=== PATIENT | male | born 1970 | race Caucasian/White ===

== ENCOUNTER 2016-05-14 23:53 | Emergency (ER) | payer SELFPAY ==
[~2016-05-14] VITALS: Ht 175.3 cm; Wt 90.0 kg
[~2016-05-14 23:53] MED LIST: ALLO100T30 PO; INDO50CA PO; OMEP10CA4 PO
[2016-05-14 23:56] VITALS: BP 115/83
[2016-05-15] MEDS ORDERED: ASPIRIN 81 MG TABLET CHEW PO ONE (00:30)
[2016-05-15 00:42] LABS: HEMOGLOBIN 15.1 g/dL (13.7-18.0)
[2016-05-15] MEDS ORDERED: ASPIRIN 81 MG TABLET CHEW ONE (00:42)
[2016-05-15 00:54] LABS: BLOOD UREA NITROGEN 16 mg/dL (7-18)
[2016-05-15 00:59] LABS: IS PT STATUS REG ER OR PRE ER? YES
[2016-05-15] MEDS ORDERED: OMNIPAQUE 350 MG/ML, 100ML BOTTLE ONE (01:05)
== END 2016-05-15 03:23 | disposition home or self-care (01) ==
LOC: ED 05-15 01:38
DX: R07.89 Other chest pain (principal); M54.30 Sciatica, unspecified side; M10.9 Gout, unspecified
CPT/HCPCS: 36415; 71010; 71275; 80048; 82040; 84484; 85025; 85379; 93005; 93971; 99285; Q9967

== ENCOUNTER 2017-01-26 22:21 | Emergency (ER) | payer SELFPAY ==
[~2017-01-26] VITALS: Ht 175.3 cm; Wt 90.0 kg
[2017-01-26 22:22] VITALS: BP 130/85
[2017-01-26] MEDS ORDERED: COLCHICINE 0.6 MG TABLET PO STA (22:45)
[2017-01-26] MEDS ORDERED: HYDROmorphone 2 MG/ML, 1ML IM STA (22:51)
[2017-01-26] MEDS ORDERED: HYDROmorphone 2 MG/ML, 1ML ONE (23:00)
[2017-01-26 23:05] LABS: HEMATOCRIT 42.1 % (39.2-51.8); HEMOGLOBIN 14.1 g/dL (13.7-18.0); WHITE BLOOD COUNT 7.6 x10^3/uL (3.4-10)
[2017-01-26 23:12] LABS: ASPARTATE AMINO TRANSFERASE 21 U/L (15-37); BLOOD UREA NITROGEN 20 mg/dL (7-18)
== END 2017-01-27 00:31 | disposition home or self-care (01) ==
LOC: ED 23:59
DX: M13.0 Polyarthritis, unspecified (principal); M10.9 Gout, unspecified; E11.65 Type 2 diabetes mellitus with hyperglycemia
CPT/HCPCS: 36415; 64450; 73660; 80053; 85025; 96372; 99285; J1170

== ENCOUNTER 2017-03-01 16:09 | Emergency (ER) | payer OTHER ==
[~2017-03-01] VITALS: Ht 175.3 cm; Wt 80.0 kg
[2017-03-01] MEDS ORDERED: SODIUM CHLORIDE 0.9% 1,000 ML IV ONE (16:50)
[2017-03-01] MEDS ORDERED: MORPHINE SULFATE 4 MG/ML, 1ML IVPush PRN (17:00)
[2017-03-01] MEDS ORDERED: SODIUM CHLORIDE FLUSH 10ML SYR IVF ONE (17:00)
[2017-03-01] MEDS ORDERED: ONDANSETRON 2MG/ML, 2ML IVPush ONE (17:00)
[2017-03-01] MEDS ORDERED: ONDANSETRON 2MG/ML, 2ML ONE (17:17)
[2017-03-01] MEDS ORDERED: MORPHINE SULFATE 4 MG/ML, 1ML ONE (17:17)
[2017-03-01] MEDS ORDERED: KETOROLAC 30 MG/1 ML IVPush ONE (17:20)
[2017-03-01] MEDS ORDERED: KETOROLAC 30 MG/1 ML ONE (17:25)
[2017-03-01 18:43] VITALS: BP 140/85
== END 2017-03-01 18:47 | disposition home or self-care (01) ==
LOC: ED 17:37
DX: N13.2 Hydronephrosis with renal and ureteral calculous obstruction (principal); M19.90 Unspecified osteoarthritis, unspecified site; M10.9 Gout, unspecified; E11.9 Type 2 diabetes mellitus without complications
CPT/HCPCS: 96374; 96375; 99284; J1885; J2405; J7030; 99285

== ENCOUNTER 2017-05-23 22:12 | Emergency (ER) | payer SELFPAY ==
[~2017-05-23] VITALS: Ht 175.3 cm; Wt 91.6 kg
[2017-05-23 23:28] LABS: BASOPHILS # (AUTO) 0.11 x10^3/uL (0-0.1); BASOPHILS % (AUTO) 1 % (0-1); EOSINOPHILS # (AUTO) 0.16 x10^3/uL (0-0.4); EOSINOPHILS % (AUTO) 2 % (1-7); LYMPHOCYTES % (AUTO) 19 % (22-44); MD NO; MEAN CORPUSCULAR HEMOGLOBIN 29.8 pg (27.5-34.5); MEAN CORPUSCULAR HGB CONC 33.6 g/dL (33.2-36.2); MEAN CORPUSCULAR VOLUME 88.8 fL (81-97); MEAN PLATELET VOLUME 8.2 fL (7.4-10.4); MONOCYTES # (AUTO) 0.89 x10^3/uL (0.2-0.8); MONOCYTES % (AUTO) 9 % (2-9); NEUTROPHILS # (AUTO) 7.21 x10^3/uL (1.8-6.8); NEUTROPHILS % (AUTO) 70 % (42-75); PLATELET COUNT 344 x10^3/uL (130-400); RED BLOOD COUNT 4.62 x10^6/uL (4.38-5.82); RED CELL DISTRIBUTION WIDTH 14.2 % (9.4-14.8)
[2017-05-23 23:40] LABS: ALBUMIN 3.6 g/dL (3.4-5.0); ANION GAP 10 mmol/L (5-15); CALCIUM 8.2 mg/dL (8.5-10.1); CHLORIDE 104 mmol/L (98-107); CREATININE 0.95 mg/dL (0.7-1.3)
[2017-05-23 23:43] LABS: TROPONIN I < 0.015 ng/mL (0.000-0.045)
[2017-05-24] MEDS ORDERED: KETOROLAC 30 MG/1 ML ONE (00:43)
[2017-05-24] MEDS ORDERED: DEXAMETHASONE 4 MG TABLET ONE (00:43)
[2017-05-24] MEDS ORDERED: DEXAMETHASONE 4 MG TABLET PO ONE (01:00)
[2017-05-24] MEDS ORDERED: KETOROLAC 30 MG/1 ML IM ONE (01:00)
[2017-05-24 01:13] VITALS: BP 125/86
== END 2017-05-24 01:15 | disposition home or self-care (01) ==
LOC: ED 23:59
DX: J02.8 Acute pharyngitis due to other specified organisms (principal); R07.89 Other chest pain
CPT/HCPCS: 36415; 71045; 80048; 82040; 83880; 84484; 85025; 87081; 87880; 93005; 96372; 99285; J1885

== ENCOUNTER 2017-07-16 14:34 | Emergency (ER) | payer SELFPAY ==
[~2017-07-16] VITALS: Ht 175.3 cm; Wt 90.0 kg
[2017-07-16 14:35] VITALS: BP 134/87
[2017-07-16] MEDS ORDERED: SODIUM CHLORIDE 0.9% 1,000 ML IV ONE (15:08)
[2017-07-16] MEDS ORDERED: ONDANSETRON ODT 4 MG ONE (15:22)
[2017-07-16] MEDS ORDERED: MORPHINE SULFATE 4 MG/ML, 1ML ONE ×2 (15:23→17:35)
[2017-07-16 15:25] LABS: BASOPHILS # (AUTO) 0.02 x10^3/uL (0-0.1); BASOPHILS % (AUTO) 0 % (0-1); EOSINOPHILS # (AUTO) 0.06 x10^3/uL (0-0.4); EOSINOPHILS % (AUTO) 1 % (1-7); LYMPHOCYTES # (AUTO) 1.42 x10^3/uL (1-3.4); LYMPHOCYTES % (AUTO) 16 % (22-44); MD NO; MEAN CORPUSCULAR HEMOGLOBIN 29.6 pg (27.5-34.5); MEAN CORPUSCULAR VOLUME 89.6 fL (81-97); MEAN PLATELET VOLUME 7.9 fL (7.4-10.4); MONOCYTES # (AUTO) 0.63 x10^3/uL (0.2-0.8); MONOCYTES % (AUTO) 7 % (2-9); NEUTROPHILS % (AUTO) 76 % (42-75); PLATELET COUNT 294 x10^3/uL (130-400); RED BLOOD COUNT 4.68 x10^6/uL (4.38-5.82); RED CELL DISTRIBUTION WIDTH 14.1 % (9.4-14.8)
[2017-07-16] MEDS ORDERED: SODIUM CHLORIDE 0.9% 1,000ML IVBOLUS ONE (15:30)
[2017-07-16] MEDS ORDERED: ONDANSETRON ODT 4 MG PO ONE (15:30)
[2017-07-16 15:37] LABS: ALBUMIN 3.4 g/dL (3.4-5.0); ANION GAP 10 mmol/L (5-15); CALCIUM 8.1 mg/dL (8.5-10.1); CHLORIDE 99 mmol/L (98-107)
[2017-07-16 15:40] LABS: ALANINE AMINOTRANSFERASE 18 U/L (12-78); ALKALINE PHOSPHATASE 125 U/L (45-117); BILIRUBIN,TOTAL 0.6 mg/dL (0.2-1.0); CREATININE 1.13 mg/dL (0.7-1.3); TOTAL PROTEIN 7.3 g/dL (6.4-8.2)
[2017-07-16] MEDS: MORPHINE SULFATE 4 MG/ML, 1ML IVPush PRN ×2 (15:50→17:40)
[2017-07-16] MEDS ORDERED: KETOROLAC 30 MG/1 ML IVPush ONE (16:30)
[2017-07-16 17:23] LABS: MICROSCOPIC NOT IND
[2017-07-16 17:25] LABS: CULTURE INDICATED? NO
[2017-07-16] MEDS ORDERED: KETOROLAC 30 MG/1 ML ONE (17:34)
== END 2017-07-16 19:20 ==
LOC: ED 18:33
DX: R10.13 Epigastric pain (principal); E11.65 Type 2 diabetes mellitus with hyperglycemia; B34.9 Viral infection, unspecified; M10.9 Gout, unspecified; M19.90 Unspecified osteoarthritis, unspecified site
CPT/HCPCS: 36415; 80053; 81003; 83690; 85025; 93005; 96361; 96374; 96375; 96376; 99285; J1885; J7030; Q0162

== ENCOUNTER 2017-07-31 22:03 | Emergency (ER) | payer SELFPAY ==
[~2017-07-31] VITALS: Ht 172.7 cm; Wt 90.9 kg
[2017-07-31 22:53] LABS: BASOPHILS # (AUTO) 0.04 x10^3/uL (0-0.1); BASOPHILS % (AUTO) 1 % (0-1); EOSINOPHILS % (AUTO) 3 % (1-7); LYMPHOCYTES # (AUTO) 2.06 x10^3/uL (1-3.4); LYMPHOCYTES % (AUTO) 29 % (22-44); MD NO; MEAN CORPUSCULAR HEMOGLOBIN 29.1 pg (27.5-34.5); MEAN CORPUSCULAR HGB CONC 33.3 g/dL (33.2-36.2); MEAN CORPUSCULAR VOLUME 87.4 fL (81-97); MONOCYTES # (AUTO) 0.49 x10^3/uL (0.2-0.8); MONOCYTES % (AUTO) 7 % (2-9); NEUTROPHILS # (AUTO) 4.23 x10^3/uL (1.8-6.8); NEUTROPHILS % (AUTO) 60 % (42-75); PLATELET COUNT 317 x10^3/uL (130-400); RED BLOOD COUNT 4.65 x10^6/uL (4.38-5.82); RED CELL DISTRIBUTION WIDTH 14.1 % (9.4-14.8)
[2017-07-31] MEDS ORDERED: KETOROLAC 30 MG/1 ML ONE (22:54)
[2017-07-31] MEDS ORDERED: KETOROLAC 30 MG/1 ML IM ONE (23:00)
[2017-07-31 23:05] LABS: ALBUMIN 3.5 g/dL (3.4-5.0); ANION GAP 8 mmol/L (5-15); CALCIUM 8.8 mg/dL (8.5-10.1); CHLORIDE 108 mmol/L (98-107); CREATININE 0.95 mg/dL (0.7-1.3)
[2017-07-31 23:50] VITALS: BP 138/87
== END 2017-07-31 23:52 | disposition home or self-care (01) ==
LOC: ED 23:38
DX: M25.562 Pain in left knee (principal); M79.675 Pain in left toe(s); M13.0 Polyarthritis, unspecified
CPT/HCPCS: 36415; 80048; 82040; 85025; 96372; 99284; J1885; J7512

== ENCOUNTER 2018-01-13 09:36 | Emergency (ER) | payer SELFPAY ==
[~2018-01-13] VITALS: Ht 175.3 cm; Wt 93.8 kg
[~2018-01-13 09:36] MED LIST changes: -INDO50CA PO; +INDO50CA5 PO
[2018-01-13 09:47] VITALS: BP 119/81
[2018-01-13] MEDS ORDERED: KETOROLAC 30 MG/1 ML ONE (10:22)
[2018-01-13] MEDS ORDERED: KETOROLAC 30 MG/1 ML IM ONE (10:30)
[2018-01-13 10:32] LABS: BASOPHILS # (AUTO) 0.03 x10^3/uL (0-0.1); BASOPHILS % (AUTO) 0 % (0-1); EOSINOPHILS # (AUTO) 0.05 x10^3/uL (0-0.4); EOSINOPHILS % (AUTO) 1 % (1-7); LYMPHOCYTES # (AUTO) 1.33 x10^3/uL (1-3.4); LYMPHOCYTES % (AUTO) 16 % (22-44); MD NO; MEAN CORPUSCULAR HEMOGLOBIN 29.9 pg (27.5-34.5); MEAN CORPUSCULAR HGB CONC 33.5 g/dL (33.2-36.2); MEAN CORPUSCULAR VOLUME 89.2 fL (81-97); MEAN PLATELET VOLUME 8.5 fL (7.4-10.4); MONOCYTES # (AUTO) 0.68 x10^3/uL (0.2-0.8); MONOCYTES % (AUTO) 8 % (2-9); NEUTROPHILS # (AUTO) 6.36 x10^3/uL (1.8-6.8); NEUTROPHILS % (AUTO) 75 % (42-75); PLATELET COUNT 245 x10^3/uL (130-400); RED BLOOD COUNT 4.77 x10^6/uL (4.38-5.82); RED CELL DISTRIBUTION WIDTH 14.5 % (9.4-14.8)
[2018-01-13] MEDS ORDERED: COLCHICINE 0.6 MG TABLET PO ONE (11:30)
[2018-01-13] MEDS ORDERED: COLCHICINE 0.6 MG TABLET ONE (11:44)
== END 2018-01-13 12:07 | disposition home or self-care (01) ==
LOC: ED 10:40
DX: M19.021 Primary osteoarthritis, right elbow (principal); M19.041 Primary osteoarthritis, right hand; E11.9 Type 2 diabetes mellitus without complications
CPT/HCPCS: 36415; 73080; 73130; 84550; 85025; 85651; 96372; 99284; J1885

== ENCOUNTER 2018-03-24 18:02 | Emergency (ER) | payer SELFPAY ==
[~2018-03-24] VITALS: Ht 175.3 cm; Wt 91.0 kg
[2018-03-24] MEDS ORDERED: HYDROcodone/APAP 5/325 TABLET ONE (18:59)
[2018-03-24] MEDS ORDERED: METHOCARBAMOL 750 MG TABLET ONE (18:59)
--- NOTE | 2018-03-24 18:59 | NUR ---
Pt in bathroom, family at bedside during bedside report. Hansa PACE medicating pt, waiting for results.
[2018-03-24] MEDS ORDERED: HYDROcodone/APAP 5/325 TABLET PO ONE (19:00)
[2018-03-24] MEDS ORDERED: METHOCARBAMOL 750 MG TABLET PO ONE (19:00)
--- NOTE | 2018-03-24 19:45 | NUR ---
PT PAIN DECREASED FROM 10/10 TO 8/[address]. CT PENDING.
--- NOTE | 2018-03-24 20:00 | NUR ---
ALL RESULTS BACK PT UP FOR RECHECK.
[2018-03-24 20:52] VITALS: BP 132/86
== END 2018-03-24 20:56 | disposition home or self-care (01) ==
LOC: ED 19:40
DX: G24.3 Spasmodic torticollis (principal); E11.9 Type 2 diabetes mellitus without complications
CPT/HCPCS: 72125; 99284

== ENCOUNTER 2018-05-02 15:06 | Emergency (ER) | payer SELFPAY ==
[~2018-05-02] VITALS: Ht 175.3 cm; Wt 92.4 kg
[2018-05-02 15:36] LABS: BASOPHILS # (AUTO) 0.04 x10^3/uL (0-0.1); BASOPHILS % (AUTO) 0 % (0-1); EOSINOPHILS # (AUTO) 0.08 x10^3/uL (0-0.4); EOSINOPHILS % (AUTO) 1 % (1-7); LYMPHOCYTES # (AUTO) 1.97 x10^3/uL (1-3.4); LYMPHOCYTES % (AUTO) 22 % (22-44); MD NO; MEAN CORPUSCULAR HEMOGLOBIN 30.1 pg (27.5-34.5); MEAN CORPUSCULAR HGB CONC 33.8 g/dL (33.2-36.2); MEAN CORPUSCULAR VOLUME 89.2 fL (81-97); MEAN PLATELET VOLUME 8.4 fL (7.4-10.4); MONOCYTES # (AUTO) 0.65 x10^3/uL (0.2-0.8); MONOCYTES % (AUTO) 7 % (2-9); NEUTROPHILS % (AUTO) 69 % (42-75); PLATELET COUNT 277 x10^3/uL (130-400); RED BLOOD COUNT 4.73 x10^6/uL (4.38-5.82); RED CELL DISTRIBUTION WIDTH 13.9 % (9.4-14.8)
[2018-05-02 15:39] LABS: ANION GAP 6 mmol/L (5-15); CALCIUM 8.5 mg/dL (8.5-10.1); CHLORIDE 108 mmol/L (98-107); CREATININE 1.07 mg/dL (0.7-1.3)
[2018-05-02 16:03] LABS: MICROSCOPIC NOT IND
[2018-05-02 16:15] LABS: CULTURE INDICATED? NO
[2018-05-02] MEDS ORDERED: HYDROmorphone 2 MG/ML, 1ML IVPush PRN (16:30)
[2018-05-02] MEDS ORDERED: ONDANSETRON 2MG/ML, 2ML IVPush ONE (16:30)
[2018-05-02] MEDS ORDERED: HYDROmorphone 1 MG/ML, 1ML ONE (16:53)
[2018-05-02] MEDS ORDERED: ONDANSETRON ODT 4 MG ONE (16:53)
[2018-05-02] MEDS ORDERED: KETOROLAC 30 MG/1 ML ONE (16:56)
[2018-05-02] MEDS ORDERED: KETOROLAC 30 MG/1 ML IM ONE (17:00)
[2018-05-02] MEDS ORDERED: ONDANSETRON ODT 4 MG PO ONE (17:00)
[2018-05-02 17:30] VITALS: BP 125/86
--- NOTE | 2018-05-02 17:31 | NUR ---
Patient/Caregiver given discharge instructions and they have confirmed that they understand the instructions. Patient ambulatory with steady gait. PT VERBALIZES "PAIN IS BETTER"
== END 2018-05-02 17:32 | disposition home or self-care (01) ==
LOC: ED 17:15
DX: M54.5 Low back pain (principal); E11.9 Type 2 diabetes mellitus without complications
CPT/HCPCS: 36415; 74176; 80048; 81003; 82040; 85025; 96372; 99284; J1885; Q0162

== ENCOUNTER 2018-08-15 06:25 | Emergency (ER) | payer SELFPAY ==
[~2018-08-15] VITALS: Ht 175.3 cm; Wt 93.9 kg
[2018-08-15 06:27] VITALS: BP 136/89
--- NOTE | 2018-08-15 06:54 | NUR ---
Received report from SANJEEV Aguirre. All questions answered. Assuming care of pt. MARC. Pt provided urine sample. UA sent to lab. Pt resting on gurney with call light within reach. No needs expressed. Pt has unlabored respirations with even chest rise and fall.
[2018-08-15] MEDS ORDERED: KETOROLAC 30 MG/1 ML ONE (06:57)
[2018-08-15] MEDS ORDERED: KETOROLAC 30 MG/1 ML IM ONE (07:00)
[2018-08-15 07:04] LABS: MICROSCOPIC NOT IND
[2018-08-15 07:05] LABS: CULTURE INDICATED? NO
--- NOTE | 2018-08-15 07:52 | NUR ---
Patient given discharge instructions and they have confirmed that they understand the instructions. Patient ambulatory with steady gait. Pt left with all personal belongings, d/c paperwork, and prescriptions. Pt encouraged to return to ED if symptoms worsen or change.
== END 2018-08-15 07:54 | disposition home or self-care (01) ==
LOC: ED 07:53
DX: S39.012A Strain of muscle, fascia and tendon of lower back, initial encounter (principal); M19.90 Unspecified osteoarthritis, unspecified site; E11.9 Type 2 diabetes mellitus without complications; X58.XXXA Exposure to other specified factors, initial encounter; Y93.89 Activity, other specified; Y92.89 Other specified places as the place of occurrence of the external cause; Y99.8 Other external cause status
CPT/HCPCS: 81003; 96372; 99283; J1885

== ENCOUNTER 2018-10-02 08:07 | Emergency (ER) | payer SELFPAY ==
[~2018-10-02] VITALS: Ht 175.3 cm; Wt 92.0 kg
[2018-10-02 10:41] VITALS: BP 114/78
== END 2018-10-02 10:54 | disposition home or self-care (01) ==
LOC: ED 09:06
DX: S39.012A Strain of muscle, fascia and tendon of lower back, initial encounter (principal); S93.492A Sprain of other ligament of left ankle, initial encounter; E11.9 Type 2 diabetes mellitus without complications; W01.0XXA Fall on same level from slipping, tripping and stumbling without subsequent striking against object, initial encounter; Y93.89 Activity, other specified; Y92.009 Unspecified place in unspecified non-institutional (private) residence as the place of occurrence of the external cause; Y99.8 Other external cause status
CPT/HCPCS: 72110; 73502; 73610; 73630; 96372; 99283; J1885

== ENCOUNTER 2018-12-19 21:07 | Emergency (ER) | payer SELFPAY ==
[~2018-12-19] VITALS: Ht 175.3 cm; Wt 91.9 kg
[~2018-12-19 21:07] MED LIST changes: +INDO50CA15 PO; -INDO50CA5 PO; -OMEP10CA4 PO; +OMEP10CA5 PO; +PRED10TA14 PO
[2018-12-19 22:14] LABS: BASOPHILS # (AUTO) 0.08 x10^3/uL (0-0.1); BASOPHILS % (AUTO) 1 % (0-1); EOSINOPHILS # (AUTO) 0.13 x10^3/uL (0-0.4); EOSINOPHILS % (AUTO) 1 % (1-7); LYMPHOCYTES # (AUTO) 1.97 x10^3/uL (1-3.4); LYMPHOCYTES % (AUTO) 20 % (22-44); MD NO; MEAN CORPUSCULAR HEMOGLOBIN 30.1 pg (27.5-34.5); MEAN CORPUSCULAR HGB CONC 32.7 g/dL (33.2-36.2); MEAN CORPUSCULAR VOLUME 92.1 fL (81-97); MEAN PLATELET VOLUME 7.8 fL (7.4-10.4); MONOCYTES # (AUTO) 0.74 x10^3/uL (0.2-0.8); MONOCYTES % (AUTO) 8 % (2-9); NEUTROPHILS # (AUTO) 6.75 x10^3/uL (1.8-6.8); NEUTROPHILS % (AUTO) 70 % (42-75); PLATELET COUNT 342 x10^3/uL (130-400); RED BLOOD COUNT 4.81 x10^6/uL (4.38-5.82); RED CELL DISTRIBUTION WIDTH 14.3 % (9.4-14.8)
[2018-12-19 22:25] LABS: ALANINE AMINOTRANSFERASE 15 U/L (12-78); ANION GAP 9 mmol/L (5-15); CALCIUM 8.8 mg/dL (8.5-10.1); CHLORIDE 107 mmol/L (98-107); CREATININE 0.99 mg/dL (0.7-1.3)
[2018-12-19 22:30] LABS: ALKALINE PHOSPHATASE 133 U/L (45-117); BILIRUBIN,TOTAL 0.4 mg/dL (0.2-1.0); TOTAL PROTEIN 7.8 g/dL (6.4-8.2); TROPONIN I < 0.015 ng/mL (0.000-0.045)
--- NOTE | 2018-12-19 22:30 | NUR ---
ERP AT BEDISDE
--- NOTE | 2018-12-19 22:49 | NUR ---
PT PRESENTED WITH C/O PAIN ACROSS CHEST AND BILAT ARMS AND UPPER BACK, STARTED TODAY 1500. MONITORS APPLIED, SIDERAILS UP X2, CALL LIGHT WITHIN REACH
[2018-12-19] MEDS ORDERED: MORPHINE SULFATE 4 MG/ML, 1ML ONE (22:53)
[2018-12-19] MEDS ORDERED: ONDANSETRON 2MG/ML, 2ML ONE (22:54)
[2018-12-19] MEDS ORDERED: ONDANSETRON 2MG/ML, 2ML IVPush ONE (23:00)
[2018-12-19] MEDS ORDERED: MORPHINE SULFATE 4 MG/ML, 1ML IVPush PRN (23:00)
--- NOTE | 2018-12-19 23:04 | NUR ---
IV SITE STARTED, PT MEDICATED PER MAR
[2018-12-19] MEDS ORDERED: OMNIPAQUE 350 MG/ML, 100ML BOTTLE ONE (23:29)
[2018-12-20 00:29] VITALS: BP 138/82
--- NOTE | 2018-12-20 00:30 | NUR ---
TASK RN: PT REPORTS IMPROVEMENT IN PAIN, "NOW IT IS JUST IN MY ARM". DENIES NEED FOR FURTHER PAIN RX. RA SPO2 >90% ON RA. DC EDUCATION PROVIDED, PT DEMONSTRATES UNDERSTANDING. PT TO DC BY WHEELCHAIR WITH RN AND FAMILY. FRIEND TO TRANSPORT PT HOME.
== END 2018-12-20 00:32 | disposition home or self-care (01) ==
LOC: ED 23:46
DX: R07.89 Other chest pain (principal); R06.02 Shortness of breath; M10.9 Gout, unspecified
CPT/HCPCS: 36415; 71045; 71275; 74175; 80053; 84484; 85025; 93005; 96374; 96375; 99284; J2270; J2405; Q9967

== ENCOUNTER 2018-12-31 16:10 | Inpatient (IN) | payer MEDICAID, OTHER ==
[~2018-12-31] VITALS: Ht 175.3 cm; Wt 92.1 kg
--- NOTE | 2018-12-31 16:39 | NUR ---
48Y M COMES IN WITH ALL OVER BODY PAIN X1WK, PT STS PAIN WORSENED TUE. PT DENIES TRAUMA AND RECENT ILLNESS. HX OF GOUT AND MAYBE RA? PT STS BEEN COMPLIANT WITH MEDICATION, RECENT MEDICATION CHANGE ON TUESDAY ( STOPPED TAKING ALLOPURINOL. PT CONNECTED TO MONITORING, VSS CALL LIGHT WITHIN REACH FAMILY AT BEDSIDE.
--- NOTE | 2018-12-31 16:42 | NUR ---
AT BEDSIDE TO ASSESS PT.
[2018-12-31] MEDS ORDERED: HYDROcodone/APAP 5/325 TABLET ONE (16:58)
[2018-12-31] MEDS ORDERED: KETOROLAC 30 MG/1 ML ONE (16:58)
[2018-12-31] MEDS ORDERED: HYDROcodone/APAP 5/325 TABLET PO ONE (17:00)
[2018-12-31] MEDS ORDERED: KETOROLAC 30 MG/1 ML IM ONE (17:00)
--- NOTE | 2018-12-31 17:03 | NUR ---
PT MEDICATED PER APR, LAB AT BEDSIDE
[2018-12-31 17:14] LABS: BASOPHILS # (AUTO) 0.03 x10^3/uL (0-0.1); BASOPHILS % (AUTO) 0 % (0-1); EOSINOPHILS # (AUTO) 0.04 x10^3/uL (0-0.4); EOSINOPHILS % (AUTO) 0 % (1-7); LYMPHOCYTES # (AUTO) 1.46 x10^3/uL (1-3.4); LYMPHOCYTES % (AUTO) 17 % (22-44); MD NO; MEAN CORPUSCULAR HEMOGLOBIN 30.4 pg (27.5-34.5); MEAN CORPUSCULAR HGB CONC 33.4 g/dL (33.2-36.2); MEAN CORPUSCULAR VOLUME 91.2 fL (81-97); MEAN PLATELET VOLUME 7.8 fL (7.4-10.4); MONOCYTES # (AUTO) 0.68 x10^3/uL (0.2-0.8); MONOCYTES % (AUTO) 8 % (2-9); NEUTROPHILS # (AUTO) 6.58 x10^3/uL (1.8-6.8); NEUTROPHILS % (AUTO) 75 % (42-75); PLATELET COUNT 583 x10^3/uL (130-400); RED BLOOD COUNT 4.38 x10^6/uL (4.38-5.82); RED CELL DISTRIBUTION WIDTH 13.7 % (9.4-14.8)
[2018-12-31 17:19] LABS: ALBUMIN 2.9 g/dL (3.4-5.0); ANION GAP 16 mmol/L (5-15); CALCIUM 9.2 mg/dL (8.5-10.1); CHLORIDE 88 mmol/L (98-107)
[2018-12-31 17:26] LABS: ALANINE AMINOTRANSFERASE 60 U/L (12-78); ALKALINE PHOSPHATASE 381 U/L (45-117); BILIRUBIN,TOTAL 0.7 mg/dL (0.2-1.0); CREATINE KINASE, TOTAL 33 U/L (39-308); CREATININE 0.93 mg/dL (0.7-1.3); TOTAL PROTEIN 8.1 g/dL (6.4-8.2); TROPONIN I < 0.015 ng/mL (0.000-0.045)
[2018-12-31] MEDS ORDERED: SODIUM CHLORIDE 0.9% 1,000ML IVBOLUS ONE (17:30)
[2018-12-31] MEDS ORDERED: [UNRECOGNIZED DRUG - OTHER] (17:36)
--- NOTE | 2018-12-31 17:36 | NUR ---
MD AT BEDSIDE TO DISCUSS POC WITH PT
--- NOTE | 2018-12-31 18:02 | NUR ---
IV STARTED. BOLUS RUNNING. PT RESTING ON ADDIS BROTHER AT BEDSIDE. CALL LIGHT WITHIN REACH
[2018-12-31 18:06] LABS: HCT (SEDRATE) 39.9 % (39.2-51.8)
[2018-12-31] MEDS ORDERED: ONDANSETRON 2MG/ML, 2ML IVPush PRN (18:30)
[2018-12-31] MEDS ORDERED: LIDODERM 5% PATCH TD PRN (18:30)
[2018-12-31] MEDS ORDERED: morphine SULFATE 10 MG/ML, 1ML IVPush PRN (18:30)
[2018-12-31] MEDS ORDERED: ACETAMINOPHEN 325 MG TABLET PO PRN (18:30)
[2018-12-31] MEDS ORDERED: NITROGLYCERIN OINT 2%, 1GM TP ONE (19:00)
[2018-12-31] MEDS ORDERED: COLCHICINE 0.6 MG CAPSULE PO ONE (19:30)
[2018-12-31] MEDS ORDERED: INDOMETHACIN 50 MG CAPSULE PO PRN (19:30)
[2018-12-31 19:44] VITALS: BP 120/79
[2018-12-31] MEDS: CYCLOBENZAPRINE 10 MG TABLET PO PRN (20:04)
[2018-12-31] MEDS: SODIUM CHLORIDE 0.9% 1,000 ML IV SCH (20:06)
[2018-12-31 20:31] VITALS: BP 120/79
[2018-12-31] MEDS ORDERED: hydrALAzine 20 MG/ML, 1ML IV PRN (21:00)
[2018-12-31 21:19] LABS: MICROSCOPIC INDICATED
[2018-12-31 21:34] LABS: CULTURE INDICATED? NO
[2018-12-31] MEDS: COLCHICINE 0.6 MG CAPSULE PO SCH (22:50)
[2019-01-01 00:40] VITALS: BP 104/63
[2019-01-01] MEDS: SODIUM CHLORIDE 0.9% 1,000 ML IV SCH ×2 (05:38→14:17)
[2019-01-01 05:49] LABS: HCT (SEDRATE) 35.5 % (39.2-51.8)
[2019-01-01 05:54] LABS: BASOPHILS # (AUTO) 0.01 x10^3/uL (0-0.1); BASOPHILS % (AUTO) 0 % (0-1); EOSINOPHILS % (AUTO) 0 % (1-7); LYMPHOCYTES # (AUTO) 0.52 x10^3/uL (1-3.4); LYMPHOCYTES % (AUTO) 11 % (22-44); MD NO; MEAN CORPUSCULAR HEMOGLOBIN 30.3 pg (27.5-34.5); MEAN CORPUSCULAR HGB CONC 33.2 g/dL (33.2-36.2); MEAN CORPUSCULAR VOLUME 91.1 fL (81-97); MEAN PLATELET VOLUME 7.2 fL (7.4-10.4); MONOCYTES # (AUTO) 0.12 x10^3/uL (0.2-0.8); MONOCYTES % (AUTO) 2 % (2-9); NEUTROPHILS # (AUTO) 4.28 x10^3/uL (1.8-6.8); NEUTROPHILS % (AUTO) 87 % (42-75); PLATELET COUNT 522 x10^3/uL (130-400); RED BLOOD COUNT 3.93 x10^6/uL (4.38-5.82); RED CELL DISTRIBUTION WIDTH 13.8 % (9.4-14.8)
[2019-01-01 05:57] LABS: ANION GAP 9 mmol/L (5-15); CALCIUM 8.6 mg/dL (8.5-10.1); CHLORIDE 96 mmol/L (98-107)
[2019-01-01 05:59] LABS: CREATININE 0.87 mg/dL (0.7-1.3)
[2019-01-01 06:09] LABS: HEMOGLOBIN A1C 5.7 % (4.2-6.3)
[2019-01-01 07:26] VITALS: BP 109/72
[2019-01-01] MEDS: COLCHICINE 0.6 MG CAPSULE PO SCH ×2 (07:59→21:22)
[2019-01-01] MEDS: PANTOPRAZOLE 40 MG IV IVPush SCH (08:00)
[2019-01-01] MEDS ORDERED: INDOMETHACIN 25 MG CAPSULE PO SCH (09:00)
[2019-01-01 13:17] VITALS: BP 117/74
[2019-01-01] MEDS: ENOXAPARIN 40 MG/0.4 ML SQ SCH (14:54)
[2019-01-01] MEDS ORDERED: GADOTERATE 10 MMOL/20 ML SYR ONE (16:20)
[2019-01-01 20:15] VITALS: BP 145/85
[2019-01-02] MEDS: SODIUM CHLORIDE 0.9% 1,000 ML IV SCH ×3 (02:52→23:01)
[2019-01-02 03:05] VITALS: BP 120/74
[2019-01-02 05:30] LABS: BASOPHILS % (AUTO) 0 % (0-1); EOSINOPHILS % (AUTO) 1 % (1-7); LYMPHOCYTES # (AUTO) 0.77 x10^3/uL (1-3.4); LYMPHOCYTES % (AUTO) 8 % (22-44); MD NO; MEAN CORPUSCULAR HEMOGLOBIN 30.1 pg (27.5-34.5); MEAN CORPUSCULAR HGB CONC 32.6 g/dL (33.2-36.2); MEAN CORPUSCULAR VOLUME 92.3 fL (81-97); MEAN PLATELET VOLUME 7.5 fL (7.4-10.4); MONOCYTES % (AUTO) 4 % (2-9); NEUTROPHILS # (AUTO) 8.69 x10^3/uL (1.8-6.8); NEUTROPHILS % (AUTO) 87 % (42-75); PLATELET COUNT 581 x10^3/uL (130-400); RED BLOOD COUNT 3.75 x10^6/uL (4.38-5.82); RED CELL DISTRIBUTION WIDTH 13.9 % (9.4-14.8)
[2019-01-02 05:40] LABS: ALBUMIN 2.5 g/dL (3.4-5.0); ANION GAP 8 mmol/L (5-15); CALCIUM 8.6 mg/dL (8.5-10.1); CHLORIDE 106 mmol/L (98-107)
[2019-01-02 05:46] LABS: ALANINE AMINOTRANSFERASE 102 U/L (12-78); ALKALINE PHOSPHATASE 326 U/L (45-117); BILIRUBIN,TOTAL 0.2 mg/dL (0.2-1.0); CREATININE 0.76 mg/dL (0.7-1.3); TOTAL PROTEIN 6.7 g/dL (6.4-8.2)
[2019-01-02 08:30] VITALS: BP 130/81
[2019-01-02] MEDS: COLCHICINE 0.6 MG CAPSULE PO SCH ×2 (08:30→21:10)
[2019-01-02] MEDS: PANTOPRAZOLE 40 MG IV IVPush SCH (08:31)
[2019-01-02 14:15] VITALS: BP 130/76
[2019-01-02] MEDS: ENOXAPARIN 40 MG/0.4 ML SQ SCH (14:40)
[2019-01-02 19:30] VITALS: BP 155/81
[2019-01-02] MEDS: CYCLOBENZAPRINE 10 MG TABLET PO PRN (21:09)
[2019-01-03 01:56] VITALS: BP 125/84
[2019-01-03 05:32] LABS: BASOPHILS # (AUTO) 0.03 x10^3/uL (0-0.1); BASOPHILS % (AUTO) 0 % (0-1); EOSINOPHILS % (AUTO) 0 % (1-7); LYMPHOCYTES # (AUTO) 1.82 x10^3/uL (1-3.4); LYMPHOCYTES % (AUTO) 21 % (22-44); MD NO; MEAN CORPUSCULAR HEMOGLOBIN 29.5 pg (27.5-34.5); MEAN CORPUSCULAR HGB CONC 32.5 g/dL (33.2-36.2); MEAN CORPUSCULAR VOLUME 90.8 fL (81-97); MEAN PLATELET VOLUME 6.9 fL (7.4-10.4); MONOCYTES % (AUTO) 7 % (2-9); NEUTROPHILS # (AUTO) 6.34 x10^3/uL (1.8-6.8); NEUTROPHILS % (AUTO) 72 % (42-75); PLATELET COUNT 558 x10^3/uL (130-400); RED BLOOD COUNT 3.65 x10^6/uL (4.38-5.82); RED CELL DISTRIBUTION WIDTH 14.1 % (9.4-14.8)
[2019-01-03 05:40] LABS: ALBUMIN 2.4 g/dL (3.4-5.0); ANION GAP 5 mmol/L (5-15); CALCIUM 8.3 mg/dL (8.5-10.1); CHLORIDE 109 mmol/L (98-107)
[2019-01-03 05:43] LABS: ALANINE AMINOTRANSFERASE 70 U/L (12-78); ALKALINE PHOSPHATASE 232 U/L (45-117); BILIRUBIN,TOTAL 0.2 mg/dL (0.2-1.0); CREATININE 0.78 mg/dL (0.7-1.3)
[2019-01-03 08:00] VITALS: BP 135/84
[2019-01-03] MEDS: COLCHICINE 0.6 MG CAPSULE PO SCH ×2 (09:08→20:13)
[2019-01-03] MEDS: PANTOPRAZOLE 40 MG IV IVPush SCH (09:08)
[2019-01-03] MEDS: GUAIFENESIN ER 600 MG TABLET PO SCH ×2 (09:25→20:13)
[2019-01-03 14:30] VITALS: BP 120/76
[2019-01-03] MEDS: ENOXAPARIN 40 MG/0.4 ML SQ SCH (16:02)
[2019-01-03 19:00] VITALS: BP 124/81
[2019-01-04 01:18] VITALS: BP 123/74
[2019-01-04 05:15] LABS: BASOPHILS # (AUTO) 0.03 x10^3/uL (0-0.1); BASOPHILS % (AUTO) 0 % (0-1); EOSINOPHILS # (AUTO) 0.06 x10^3/uL (0-0.4); EOSINOPHILS % (AUTO) 1 % (1-7); LYMPHOCYTES # (AUTO) 2.32 x10^3/uL (1-3.4); LYMPHOCYTES % (AUTO) 20 % (22-44); MD NO; MEAN CORPUSCULAR HEMOGLOBIN 29.9 pg (27.5-34.5); MEAN CORPUSCULAR HGB CONC 32.8 g/dL (33.2-36.2); MEAN CORPUSCULAR VOLUME 91.3 fL (81-97); MEAN PLATELET VOLUME 6.9 fL (7.4-10.4); MONOCYTES # (AUTO) 0.79 x10^3/uL (0.2-0.8); MONOCYTES % (AUTO) 7 % (2-9); NEUTROPHILS % (AUTO) 72 % (42-75); PLATELET COUNT 598 x10^3/uL (130-400); RED BLOOD COUNT 3.94 x10^6/uL (4.38-5.82); RED CELL DISTRIBUTION WIDTH 13.9 % (9.4-14.8)
[2019-01-04 05:22] LABS: CHLORIDE 107 mmol/L (98-107)
[2019-01-04 05:37] LABS: ANION GAP 8 mmol/L (5-15); CALCIUM 8.5 mg/dL (8.5-10.1); CREATININE 0.83 mg/dL (0.7-1.3)
[2019-01-04 05:38] LABS: % IRON SATURATION 31 % (20-55); ALANINE AMINOTRANSFERASE 63 U/L (12-78); ALBUMIN 2.5 g/dL (3.4-5.0); ALKALINE PHOSPHATASE 222 U/L (45-117); BILIRUBIN,TOTAL 0.2 mg/dL (0.2-1.0); IRON LEVEL 57 mcg/dL (65-175); TOTAL IRON BINDING CAPACITY 182 mcg/dL (250-450); TOTAL PROTEIN 6.2 g/dL (6.4-8.2); TRANSFERRIN 160 mg/dL (200-360)
[2019-01-04 06:50] VITALS: BP 131/87
[2019-01-04] MEDS: GUAIFENESIN ER 600 MG TABLET PO SCH ×2 (08:48→20:35)
[2019-01-04] MEDS: PANTOPRAZOLE 40 MG IV IVPush SCH (08:48)
[2019-01-04] MEDS: COLCHICINE 0.6 MG CAPSULE PO SCH ×2 (08:48→20:35)
[2019-01-04] MEDS: CYCLOBENZAPRINE 10 MG TABLET PO PRN (09:01)
[2019-01-04] MEDS ORDERED: FENTANYL PF 250 MCG/5ML ONE (10:18)
[2019-01-04] MEDS ORDERED: MIDAZOLAM 1 MG/ML, 2ML ONE (10:18)
[2019-01-04] MEDS ORDERED: PROPOFOL 10 MG/ML, 20ML ONE (10:18)
[2019-01-04] MEDS ORDERED: CEFAZOLIN 1,000 MG ONE ×2 (10:18)
[2019-01-04] MEDS ORDERED: DEXAMETHASONE 4 MG/ML, 1ML ONE ×2 (10:18)
[2019-01-04] MEDS ORDERED: LIDOCAINE-MPF 2% ,5ML ONE (10:19)
[2019-01-04] MEDS ORDERED: ROCURONIUM 10MG/ML,5ML ONE (10:19)
[2019-01-04] MEDS ORDERED: ACETAMINOPHEN 500 MG TABLET PO ONE (11:00)
[2019-01-04] MEDS ORDERED: OXYcodone IR 5MG TABLET PO ONE (11:00)
[2019-01-04] MEDS ORDERED: GABAPENTIN 300 MG CAPSULE PO ONE (11:00)
[2019-01-04] MEDS ORDERED: BACITRACIN OINT 500U/GM, 15 GM ONE (11:59)
[2019-01-04] MEDS ORDERED: BUPIVACAINE/PF 0.5% ONE (11:59)
[2019-01-04] MEDS ORDERED: methylPREDNISolone *ACETATE* 40 MG/ML ONE (11:59)
[2019-01-04] MEDS ORDERED: EPINEPHRINE 1 MG/ML, 1ML ONE (11:59)
[2019-01-04] MEDS ORDERED: THROMBIN 5,000 UNIT VIAL TP ONE (11:59)
[2019-01-04] MEDS ORDERED: BACITRACIN 50,000 UNIT ONE (12:00)
[2019-01-04] MEDS ORDERED: FENTANYL PF 100 MCG/2ML IV PRN (12:00)
[2019-01-04] MEDS ORDERED: OXYcodone 5 MG/5 ML ORAL.SOL UDC PO PRN (12:00)
[2019-01-04] MEDS ORDERED: HYDROmorphone 2 MG/ML, 1ML IVPush PRN (12:00)
[2019-01-04] MEDS ORDERED: LORazepam 2 MG/ML, 1ML IVPush PRN (12:00)
[2019-01-04] MEDS ORDERED: ONDANSETRON 2MG/ML, 2ML IV PRN (12:00)
[2019-01-04] MEDS ORDERED: MEPERIDINE/PF 25MG/ML,1ML IVPush PRN (12:00)
[2019-01-04] MEDS ORDERED: NEOSTIGMINE 1 MG/ML, 10ML ONE (12:19)
[2019-01-04] MEDS ORDERED: GLYCOPYRROLATE 0.2MG/1ML, 5ML ONE (12:19)
[2019-01-04] MEDS: CYCLOBENZAPRINE 10 MG TABLET PO SCH ×2 (16:31→20:35)
[2019-01-04 17:30] VITALS: BP 126/78
[2019-01-04 18:53] VITALS: BP 128/82
[2019-01-04] MEDS: CEFAZOLIN PMX 1GM/50ML 50 ML IV SCH (21:50)
[2019-01-05 03:17] VITALS: BP 124/82
[2019-01-05] MEDS: OXYcodone IR 5MG TABLET PO PRN ×2 (05:54→09:54)
[2019-01-05] MEDS: CEFAZOLIN PMX 1GM/50ML 50 ML IV SCH ×2 (05:54→13:18)
[2019-01-05 07:18] VITALS: BP 121/79
[2019-01-05] MEDS: PANTOPRAZOLE 40 MG IV IVPush SCH (07:40)
[2019-01-05] MEDS: CYCLOBENZAPRINE 10 MG TABLET PO SCH ×3 (07:40→20:08)
[2019-01-05] MEDS: COLCHICINE 0.6 MG CAPSULE PO SCH ×2 (07:40→20:08)
[2019-01-05] MEDS: GUAIFENESIN ER 600 MG TABLET PO SCH ×2 (07:40→20:08)
[2019-01-05 09:04] LABS: BASOPHILS # (AUTO) 0.04 x10^3/uL (0-0.1); BASOPHILS % (AUTO) 0 % (0-1); EOSINOPHILS # (AUTO) 0.02 x10^3/uL (0-0.4); EOSINOPHILS % (AUTO) 0 % (1-7); LYMPHOCYTES # (AUTO) 2.22 x10^3/uL (1-3.4); LYMPHOCYTES % (AUTO) 19 % (22-44); MD NO; MEAN CORPUSCULAR HEMOGLOBIN 29.7 pg (27.5-34.5); MEAN CORPUSCULAR HGB CONC 32.2 g/dL (33.2-36.2); MEAN CORPUSCULAR VOLUME 92.1 fL (81-97); MEAN PLATELET VOLUME 6.9 fL (7.4-10.4); MONOCYTES # (AUTO) 0.57 x10^3/uL (0.2-0.8); MONOCYTES % (AUTO) 5 % (2-9); NEUTROPHILS # (AUTO) 9.02 x10^3/uL (1.8-6.8); NEUTROPHILS % (AUTO) 76 % (42-75); PLATELET COUNT 645 x10^3/uL (130-400); RED BLOOD COUNT 4.47 x10^6/uL (4.38-5.82); RED CELL DISTRIBUTION WIDTH 13.8 % (9.4-14.8)
[2019-01-05 09:11] LABS: ANION GAP 6 mmol/L (5-15); CALCIUM 8.6 mg/dL (8.5-10.1); CHLORIDE 105 mmol/L (98-107)
[2019-01-05] MEDS ORDERED: FLU VAC QS 19-20(4YR UP)CEL/PF 0.5 ML IM-VACC ONE (11:30)
[2019-01-05 14:16] VITALS: BP 103/68
[2019-01-05 19:56] VITALS: BP 115/73
[2019-01-06 01:58] VITALS: BP 115/77
[2019-01-06 06:55] VITALS: BP 134/88
[2019-01-06] MEDS: COLCHICINE 0.6 MG CAPSULE PO SCH (07:52)
[2019-01-06] MEDS: GUAIFENESIN ER 600 MG TABLET PO SCH (07:52)
[2019-01-06] MEDS: CYCLOBENZAPRINE 10 MG TABLET PO SCH (07:53)
[2019-01-06] MEDS: PANTOPRAZOLE 40 MG IV IVPush SCH (07:53)
[2019-01-06] MEDS: OXYcodone IR 5MG TABLET PO PRN (08:07)
[2019-01-06] MEDS ORDERED: CYCL-259 PO (08:37)
[2019-01-06] MEDS ORDERED: INDO50CA15 PO (08:37)
[2019-01-06] MEDS ORDERED: OXYC5TAB3 PO (08:37)
[2019-01-06] MEDS ORDERED: COLC0.6C3 PO (08:37)
== END 2019-01-06 12:33 | disposition home or self-care (01) | DRG 710 ==
LOC: ED 16:37 → EDIP 18:14 → 3N 19:30 → 4NE 01-04 15:17 → DCLOUNGE 01-06 12:23
PROVIDERS: ADMIT Internal Medicine; ATTEND Internal Medicine
PROC: 0QB00ZZ Excision of Lumbar Vertebra, Open Approach (ICD-10-PCS; principal; 2019-01-04 11:00)
DX: A41.9 Sepsis, unspecified organism (principal); E43 Unspecified severe protein-calorie malnutrition; E87.1 Hypo-osmolality and hyponatremia; S82.009A Unspecified fracture of unspecified patella, initial encounter for closed fracture; N20.1 Calculus of ureter; D47.3 Essential (hemorrhagic) thrombocythemia; D64.9 Anemia, unspecified; M47.26 Other spondylosis with radiculopathy, lumbar region; M10.9 Gout, unspecified; M19.90 Unspecified osteoarthritis, unspecified site; M48.07 Spinal stenosis, lumbosacral region; M51.17 Intervertebral disc disorders with radiculopathy, lumbosacral region; Z68.30 Body mass index [BMI] 30.0-30.9, adult
CPT/HCPCS: J3490; S0020; 36415; 71045; 72100; 72158; 80048; 80053; 81001; 82550; 82728; 83036; 83540; 83550; 83605; 84466; 84484; 84550; 85025; 85651; 86140; 90674; 96360; 96372; 99285; G0378; J0171; J0690; J1100; J1650; J1885; J2250; J2704; J2710; J3010; A9575; C9113; J1030; J7030; J7512; L3999

== ENCOUNTER 2019-01-29 21:23 | Emergency (ER) | payer MEDICAID ==
[~2019-01-29] VITALS: Ht 175.3 cm; Wt 90.3 kg
[~2019-01-29 21:23] MED LIST changes: +COLC0.6C3 PO; +CYCL-259 PO; +OXYC5TAB3 PO; +[UNRECOGNIZED DRUG - OTHER]
[2019-01-29] MEDS ORDERED: KETOROLAC 30 MG/1 ML ONE (22:16)
[2019-01-29] MEDS ORDERED: OXYcodone/APAP 7.5/325MG TABLET ONE (22:18)
[2019-01-29] MEDS: KETOROLAC 30 MG/1 ML IM ONE (22:23)
[2019-01-29] MEDS: OXYcodone/APAP 7.5/325MG TABLET PO ONE (22:24)
[2019-01-29 22:27] LABS: HCT (SEDRATE) 38.2 % (39.2-51.8)
[2019-01-29 22:28] LABS: BASOPHILS # (AUTO) 0.03 x10^3/uL (0-0.1); BASOPHILS % (AUTO) 1 % (0-1); EOSINOPHILS # (AUTO) 0.27 x10^3/uL (0-0.4); EOSINOPHILS % (AUTO) 4 % (1-7); LYMPHOCYTES # (AUTO) 1.56 x10^3/uL (1-3.4); LYMPHOCYTES % (AUTO) 24 % (22-44); MD NO; MEAN CORPUSCULAR HEMOGLOBIN 30.3 pg (27.5-34.5); MEAN CORPUSCULAR HGB CONC 32.7 g/dL (33.2-36.2); MEAN CORPUSCULAR VOLUME 92.7 fL (81-97); MEAN PLATELET VOLUME 8.2 fL (7.4-10.4); MONOCYTES # (AUTO) 0.73 x10^3/uL (0.2-0.8); MONOCYTES % (AUTO) 11 % (2-9); NEUTROPHILS # (AUTO) 3.94 x10^3/uL (1.8-6.8); NEUTROPHILS % (AUTO) 60 % (42-75); PLATELET COUNT 266 x10^3/uL (130-400); RED BLOOD COUNT 4.11 x10^6/uL (4.38-5.82); RED CELL DISTRIBUTION WIDTH 16.3 % (9.4-14.8)
[2019-01-29 22:40] LABS: ALANINE AMINOTRANSFERASE 25 U/L (12-78); ALBUMIN 3.5 g/dL (3.4-5.0); ANION GAP 8 mmol/L (5-15); CALCIUM 8.2 mg/dL (8.5-10.1); CHLORIDE 110 mmol/L (98-107)
[2019-01-29 22:47] LABS: ALKALINE PHOSPHATASE 140 U/L (45-117); BILIRUBIN,TOTAL 0.4 mg/dL (0.2-1.0); CREATININE 0.92 mg/dL (0.7-1.3); TOTAL PROTEIN 6.5 g/dL (6.4-8.2)
[2019-01-30 00:17] VITALS: BP 125/79
== END 2019-01-30 00:35 | disposition home or self-care (01) ==
LOC: ED 01-30
CPT/HCPCS: 36415 ×2; 80053 ×2; 85025 ×2; 85651 ×2; 86140 ×2; 96372 ×2; 99283 ×2; J1885 ×2

== ENCOUNTER 2019-02-01 15:49 | Inpatient (IN) | payer MEDICAID ==
[~2019-02-01] VITALS: Ht 175.3 cm; Wt 92.8 kg
--- NOTE | 2019-02-01 17:24 | NUR ---
CUTTING DEPARTMENT SUPERVISOR: PT CALLED FOR ROOM, NO ANSWER
--- NOTE | 2019-02-01 17:24 | NUR ---
GAS ADJUSTER: PT TO ROOM FROM RADIOLOGY VIA W/C
--- NOTE | 2019-02-01 17:39 | NUR ---
THIS IS A 48 YO MALE COMING IN FOR BILATERAL FLANK PAIN AND MIDLINE BACK PAIN, AND BILATERAL HIP PAIN WORSENING SINCE DISC SURGERY 1 MONTH AGO. PATIENT DENIES PAINFUL URINATION OR RETENTION, DENIES SOB. PAIN DOES NOT RADIATE, 9/10 CONSTANT PAIN. PATIENT A&OX4, VSS, NAD. GIVEN UA CUP AND SANITARY WIPE TO PROVIDE UA. PATIENT PLACED ON CONTINUOUS SPO2 AT 97%, CYCLE BP Q1HR. CALL LIGHT IN REACH.
[2019-02-01 17:47] LABS: BASOPHILS # (AUTO) 0.04 x10^3/uL (0-0.1); BASOPHILS % (AUTO) 1 % (0-1); EOSINOPHILS # (AUTO) 0.18 x10^3/uL (0-0.4); EOSINOPHILS % (AUTO) 2 % (1-7); LYMPHOCYTES # (AUTO) 1.95 x10^3/uL (1-3.4); LYMPHOCYTES % (AUTO) 23 % (22-44); MD NO; MEAN CORPUSCULAR HEMOGLOBIN 29.9 pg (27.5-34.5); MEAN CORPUSCULAR HGB CONC 32.3 g/dL (33.2-36.2); MEAN CORPUSCULAR VOLUME 92.6 fL (81-97); MEAN PLATELET VOLUME 8.3 fL (7.4-10.4); MONOCYTES # (AUTO) 0.71 x10^3/uL (0.2-0.8); MONOCYTES % (AUTO) 8 % (2-9); NEUTROPHILS # (AUTO) 5.69 x10^3/uL (1.8-6.8); NEUTROPHILS % (AUTO) 66 % (42-75); PLATELET COUNT 328 x10^3/uL (130-400); RED BLOOD COUNT 4.83 x10^6/uL (4.38-5.82); RED CELL DISTRIBUTION WIDTH 15.8 % (9.4-14.8)
[2019-02-01 17:56] LABS: ALBUMIN 3.8 g/dL (3.4-5.0); ANION GAP 11 mmol/L (5-15); CALCIUM 9.3 mg/dL (8.5-10.1); CHLORIDE 105 mmol/L (98-107); CREATININE 1.13 mg/dL (0.7-1.3)
[2019-02-01] MEDS ORDERED: SODIUM CHLORIDE FLUSH 10ML SYR IVF ONE (18:00)
--- NOTE | 2019-02-01 18:10 | NUR ---
PATIENT TO MRI
[2019-02-01 18:19] LABS: MICROSCOPIC NOT IND
[2019-02-01 18:23] LABS: CULTURE INDICATED? NO
[2019-02-01] MEDS ORDERED: GADOTERATE 10 MMOL/20 ML SYR ONE (18:27)
--- NOTE | 2019-02-01 18:58 | NUR ---
PATIENT BACK FROM MRI
--- NOTE | 2019-02-01 19:10 | NUR ---
Christie starkey in [facility] - 02/01/19 at 1921 by DOMINICK patient back from mri
[2019-02-01] MEDS ORDERED: HYDROmorphone 2 MG/ML, 1ML IVPush PRN (19:30)
[2019-02-01] MEDS ORDERED: ONDANSETRON 2MG/ML, 2ML IVPush ONE (19:30)
[2019-02-01] MEDS ORDERED: HYDROmorphone 1 MG/ML, 1ML INJ ONE (19:31)
--- NOTE | 2019-02-01 19:39 | NUR ---
BREAK RN: PT APPEARS TO BE IN SEVERE PAIN, GRIMACING AND MOANING IN PAIN. ORDERS RECEIVED FOR DILAUDED 0.5MG IVP, PT MEDICATED PER EMAR, 5 RIGHTS ADDRESSED. VITALS STABLE. PT PROVIDED WITH WARMER FOR COMFORT, OFFERED PILLOWS BUT DECLINED. WILL REASSESS.
[2019-02-01] MEDS: SODIUM CHLORIDE 0.9% 1,000 ML IV SCH (20:37)
--- NOTE | 2019-02-01 20:43 | NUR ---
PATIENT SLEEPING, RESPIRATIONS EVEN AND UNLABORED. CALL LIGHT IN REACH. VSS.
[2019-02-01] MEDS ORDERED: morphine SULFATE 10 MG/ML, 1ML IVPush PRN (21:00)
[2019-02-01] MEDS ORDERED: ACETAMINOPHEN 325 MG TABLET PO PRN (21:00)
[2019-02-01] MEDS ORDERED: ONDANSETRON 2MG/ML, 2ML IVPush PRN (21:00)
[2019-02-01] MEDS ORDERED: ONDANSETRON 2MG/ML, 2ML ONE (21:17)
--- NOTE | 2019-02-01 21:26 | NUR ---
IVF STARTED, SCHEDULED MEDICATIONS ORDERED. PAIN IS NOW 7/10 AFTER FIRST DOSE OF DILAUDID. PATIENT DENIES NAUSEA, DOES NOT WANT ZOFRAN.
[2019-02-01] MEDS ORDERED: COLCHICINE 0.6 MG CAPSULE ONE (21:40)
[2019-02-01] MEDS ORDERED: CYCLOBENZAPRINE 10 MG TABLET ONE (21:40)
[2019-02-01] MEDS: CYCLOBENZAPRINE 10 MG TABLET PO SCH (21:41)
[2019-02-01] MEDS: COLCHICINE 0.6 MG CAPSULE PO SCH (21:41)
--- NOTE | 2019-02-01 21:43 | NUR ---
PATIENT MEDICATED PER EMAR. TOLERATED WELL. DENIES NEEDS AT THIS TIME. CALL LIGHT IN REACH
--- NOTE | 2019-02-01 22:04 | NUR ---
REPORT GIVEN TO SANJEEV WANG. PLAN OF CARE DISCUSSED.
[2019-02-01 22:30] VITALS: BP 117/73
[2019-02-01 22:39] LABS: HCT (SEDRATE) 44.7 % (39.2-51.8)
[2019-02-01] MEDS: HYDROcodone/APAP 5/325 TABLET PO PRN (23:38)
[2019-02-02 00:31] VITALS: BP 117/70
[2019-02-02] MEDS: HYDROcodone/APAP 5/325 TABLET PO PRN ×4 (05:31→20:55)
[2019-02-02 05:46] LABS: PROTHROMBIN TIME 10.5 Seconds (9.6-11.5)
[2019-02-02 05:48] LABS: ANION GAP 9 mmol/L (5-15); CALCIUM 8.6 mg/dL (8.5-10.1); CHLORIDE 105 mmol/L (98-107)
[2019-02-02 05:49] LABS: CREATININE 1.63 mg/dL (0.7-1.3)
[2019-02-02 05:55] LABS: BASOPHILS # (AUTO) 0.02 x10^3/uL (0-0.1); BASOPHILS % (AUTO) 0 % (0-1); EOSINOPHILS # (AUTO) 0.13 x10^3/uL (0-0.4); EOSINOPHILS % (AUTO) 2 % (1-7); LYMPHOCYTES # (AUTO) 1.59 x10^3/uL (1-3.4); LYMPHOCYTES % (AUTO) 24 % (22-44); MD NO; MEAN CORPUSCULAR HEMOGLOBIN 30.3 pg (27.5-34.5); MEAN CORPUSCULAR HGB CONC 32.8 g/dL (33.2-36.2); MEAN CORPUSCULAR VOLUME 92.3 fL (81-97); MEAN PLATELET VOLUME 8.2 fL (7.4-10.4); MONOCYTES # (AUTO) 0.82 x10^3/uL (0.2-0.8); MONOCYTES % (AUTO) 13 % (2-9); NEUTROPHILS # (AUTO) 3.99 x10^3/uL (1.8-6.8); NEUTROPHILS % (AUTO) 61 % (42-75); PLATELET COUNT 279 x10^3/uL (130-400); RED CELL DISTRIBUTION WIDTH 15.8 % (9.4-14.8)
[2019-02-02 09:25] VITALS: BP 96/62
[2019-02-02] MEDS: SODIUM CHLORIDE 0.9% 1,000 ML IV SCH ×2 (10:23→17:27)
[2019-02-02] MEDS: COLCHICINE 0.6 MG CAPSULE PO SCH ×2 (10:23→20:55)
[2019-02-02] MEDS: CYCLOBENZAPRINE 10 MG TABLET PO SCH ×3 (10:23→20:55)
[2019-02-02 14:57] VITALS: BP 103/67
[2019-02-02 20:15] VITALS: BP 106/68
[2019-02-03 00:13] VITALS: BP 112/71
[2019-02-03] MEDS: SODIUM CHLORIDE 0.9% 1,000 ML IV SCH ×3 (01:58→18:13)
[2019-02-03 08:44] VITALS: BP 131/81
[2019-02-03] MEDS: CYCLOBENZAPRINE 10 MG TABLET PO SCH ×3 (08:52→21:16)
[2019-02-03] MEDS: COLCHICINE 0.6 MG CAPSULE PO SCH ×2 (08:53→21:16)
[2019-02-03 12:45] VITALS: BP 129/83
[2019-02-03] MEDS: HYDROcodone/APAP 5/325 TABLET PO PRN (15:47)
[2019-02-03] MEDS: KETOROLAC 30 MG/1 ML IM SCH ×2 (16:46→23:52)
[2019-02-03] MEDS: ACETAMINOPHEN 500 MG TABLET PO SCH ×2 (18:13→23:47)
[2019-02-03 20:39] VITALS: BP 118/78
[2019-02-03] MEDS: OXYcodone IR 5MG TABLET PO PRN (21:16)
[2019-02-04] MEDS: OXYcodone IR 5MG TABLET PO PRN (01:31)
[2019-02-04 02:42] VITALS: BP 110/67
[2019-02-04 04:54] LABS: BASOPHILS # (AUTO) 0.03 x10^3/uL (0-0.1); BASOPHILS % (AUTO) 1 % (0-1); EOSINOPHILS # (AUTO) 0.22 x10^3/uL (0-0.4); EOSINOPHILS % (AUTO) 5 % (1-7); LYMPHOCYTES # (AUTO) 1.57 x10^3/uL (1-3.4); LYMPHOCYTES % (AUTO) 33 % (22-44); MD NO; MEAN CORPUSCULAR HEMOGLOBIN 30.3 pg (27.5-34.5); MEAN CORPUSCULAR HGB CONC 32.8 g/dL (33.2-36.2); MEAN CORPUSCULAR VOLUME 92.5 fL (81-97); MEAN PLATELET VOLUME 8.3 fL (7.4-10.4); MONOCYTES # (AUTO) 0.52 x10^3/uL (0.2-0.8); MONOCYTES % (AUTO) 11 % (2-9); NEUTROPHILS % (AUTO) 52 % (42-75); PLATELET COUNT 288 x10^3/uL (130-400); RED BLOOD COUNT 3.83 x10^6/uL (4.38-5.82); RED CELL DISTRIBUTION WIDTH 15.3 % (9.4-14.8)
[2019-02-04 05:01] LABS: ANION GAP 7 mmol/L (5-15); CALCIUM 8.1 mg/dL (8.5-10.1); CHLORIDE 109 mmol/L (98-107)
[2019-02-04 05:03] LABS: CREATININE 1.07 mg/dL (0.7-1.3)
[2019-02-04] MEDS: ACETAMINOPHEN 500 MG TABLET PO SCH ×3 (06:02→18:21)
[2019-02-04] MEDS: KETOROLAC 30 MG/1 ML IM SCH (06:02)
[2019-02-04 07:57] VITALS: BP 123/82
[2019-02-04] MEDS: CYCLOBENZAPRINE 10 MG TABLET PO SCH ×3 (08:54→20:43)
[2019-02-04] MEDS: COLCHICINE 0.6 MG CAPSULE PO SCH ×2 (08:54→20:43)
[2019-02-04] MEDS: SODIUM CHLORIDE 0.9% 1,000 ML IV SCH (11:56)
[2019-02-04] MEDS: KETOROLAC 30 MG/1 ML IVPush SCH ×2 (11:56→18:21)
[2019-02-04 13:35] VITALS: BP 117/76
[2019-02-04 19:28] VITALS: BP 136/88
[2019-02-05 00:46] VITALS: BP 154/94
[2019-02-05] MEDS: KETOROLAC 30 MG/1 ML IVPush SCH ×2 (00:53→06:15)
[2019-02-05] MEDS: ACETAMINOPHEN 500 MG TABLET PO SCH ×2 (00:53→06:16)
[2019-02-05] MEDS: SODIUM CHLORIDE 0.9% 1,000 ML IV SCH (00:56)
[2019-02-05 04:30] LABS: BASOPHILS # (AUTO) 0.02 x10^3/uL (0-0.1); BASOPHILS % (AUTO) 1 % (0-1); EOSINOPHILS # (AUTO) 0.12 x10^3/uL (0-0.4); EOSINOPHILS % (AUTO) 3 % (1-7); LYMPHOCYTES # (AUTO) 1.23 x10^3/uL (1-3.4); LYMPHOCYTES % (AUTO) 34 % (22-44); MD NO; MEAN CORPUSCULAR HEMOGLOBIN 30.2 pg (27.5-34.5); MEAN CORPUSCULAR HGB CONC 33.2 g/dL (33.2-36.2); MEAN CORPUSCULAR VOLUME 90.8 fL (81-97); MEAN PLATELET VOLUME 8.3 fL (7.4-10.4); MONOCYTES # (AUTO) 0.37 x10^3/uL (0.2-0.8); MONOCYTES % (AUTO) 10 % (2-9); NEUTROPHILS # (AUTO) 1.92 x10^3/uL (1.8-6.8); NEUTROPHILS % (AUTO) 52 % (42-75); PLATELET COUNT 313 x10^3/uL (130-400); RED BLOOD COUNT 4.12 x10^6/uL (4.38-5.82); RED CELL DISTRIBUTION WIDTH 15.4 % (9.4-14.8)
[2019-02-05 04:40] LABS: ALBUMIN 2.9 g/dL (3.4-5.0); ANION GAP 7 mmol/L (5-15); CALCIUM 8.4 mg/dL (8.5-10.1); CHLORIDE 110 mmol/L (98-107)
[2019-02-05 04:45] LABS: ALANINE AMINOTRANSFERASE 40 U/L (12-78); ALKALINE PHOSPHATASE 102 U/L (45-117); BILIRUBIN,TOTAL 0.4 mg/dL (0.2-1.0); CREATININE 0.92 mg/dL (0.7-1.3); TOTAL PROTEIN 6.3 g/dL (6.4-8.2)
[2019-02-05 07:00] VITALS: BP 138/88
[2019-02-05] MEDS: CYCLOBENZAPRINE 10 MG TABLET PO SCH (07:46)
[2019-02-05] MEDS: COLCHICINE 0.6 MG CAPSULE PO SCH (07:46)
[2019-02-05] MEDS ORDERED: POTASSIUM CHLORIDE 20 MEQ TAB.ER.PRT PO ONE (08:00)
[2019-02-05] MEDS ORDERED: CHOLECALCIFEROL 1,000 UNIT TABLET PO SCH (09:00)
[2019-02-05] MEDS ORDERED: CHOL10003 PO (10:03)
[2019-02-05] MEDS ORDERED: OXYC-302 PO (10:03)
[2019-02-05] MEDS ORDERED: CELE200C PO (10:03)
[2019-02-05 11:40] VITALS: BP 136/95
[2019-02-06 14:17] LABS: ANA SCREEN NEGATIVE (Negative)
== END 2019-02-05 12:54 | disposition home or self-care (01) | DRG 813 ==
LOC: ED 18:12 → EDIP 20:37 → 4NE 22:28 → DCLOUNGE 02-05 12:26
PROVIDERS: ADMIT Internal Medicine; ATTEND Internal Medicine
DX: M96.842 Postprocedural seroma of a musculoskeletal structure following a musculoskeletal system procedure (principal); G89.29 Other chronic pain; Y83.8 Other surgical procedures as the cause of abnormal reaction of the patient, or of later complication, without mention of misadventure at the time of the procedure; Y92.89 Other specified places as the place of occurrence of the external cause; M06.9 Rheumatoid arthritis, unspecified; M10.9 Gout, unspecified; M51.17 Intervertebral disc disorders with radiculopathy, lumbosacral region; M25.461 Effusion, right knee; M25.462 Effusion, left knee
CPT/HCPCS: 36415; 72110; 72158; 73523; 80048; 80053; 81003; 82040; 82306; 82550; 84100; 84550; 85025; 85610; 85651; 86038; 86140; 86430; G0378; J1170; J1885; A9575; J7030

== ENCOUNTER 2019-02-21 18:36 | Emergency (ER) | payer SELFPAY ==
[~2019-02-21] VITALS: Ht 175.3 cm; Wt 87.2 kg
[~2019-02-21 18:36] MED LIST changes: +CELE200C PO; +CHOL10003 PO; +OXYC-302 PO
--- NOTE | 2019-02-21 18:56 | NUR ---
Pt arrives via EMS for back pain x2 months that worsened today. Pt has seen his PCP who advised MRI for possible fluid collection. Pt has not scheduled this. Pt has oxy, flexeril and gabapentin at home. EMS placed PIV to right wrist and gave 25 ketamine, 1 of versed, and 4 of zofran. Pt currently denying pain at this time except to wrist d/t gout. Pt on all monitors. Friend at bedside.
--- NOTE | 2019-02-21 19:02 | NUR ---
PT ASSITED TO REMOVE OFF PANTS FOR MD EXAM.
--- NOTE | 2019-02-21 20:25 | NUR ---
Pt to imaging.
--- NOTE | 2019-02-21 21:20 | NUR ---
PROVIDER ASKED IF PT ALLOWED PO FLUIDS. PER MD ENG TO GIVE.
[2019-02-21 21:33] VITALS: BP 118/85
--- NOTE | 2019-02-21 22:08 | NUR ---
Pt aware of plan for d/c. Pt calling friend to come pick him up.
[2019-02-21] MEDS ORDERED: OXYcodone IR 5MG TABLET ONE (22:17)
[2019-02-21] MEDS ORDERED: OXYcodone IR 5MG TABLET PO ONE (22:30)
--- NOTE | 2019-02-21 22:32 | NUR ---
Pt dc'd to self care. Pt alert and oriented. Pt assisted in wheelchair by friend. Pt medicated at time fo d/c and educated on not driving while using narcotics or drinking/taking other substances. Education provided on follow-up, home care, and S/Sx to return. Pt VU. Pt wheeled out of ER by friend.
== END 2019-02-21 22:35 | disposition home or self-care (01) ==
LOC: ED 21:12
DX: M54.5 Low back pain (principal); M13.0 Polyarthritis, unspecified
CPT/HCPCS: 72148; 99284

== ENCOUNTER 2019-03-14 20:34 | Inpatient (IN) | payer MEDICAID, OTHER ==
[~2019-03-14] VITALS: Ht 175.3 cm; Wt 83.2 kg
--- NOTE | 2019-03-14 20:40 | NUR ---
Patient presents to ER c/o back pain. He has a hx of gout and chronic back pain but he was unable to control it today with home meds. Patient in obvious pain. Respirations even and unlabored.
[2019-03-14] MEDS ORDERED: HYDROmorphone 1 MG/ML, 1ML INJ ONE ×2 (21:22→22:35)
[2019-03-14] MEDS ORDERED: KETOROLAC 30 MG/1 ML ONE (21:22)
[2019-03-14] MEDS ORDERED: DIAZEPAM 5 MG TABLET ONE (21:23)
[2019-03-14] MEDS ORDERED: DIAZEPAM 5 MG TABLET PO ONE (21:30)
[2019-03-14] MEDS ORDERED: KETOROLAC 30 MG/1 ML IVPush ONE (21:30)
[2019-03-14] MEDS: HYDROmorphone 2 MG/ML, 1ML IVPush PRN ×2 (21:41→22:38)
[2019-03-14 22:02] LABS: BASOPHILS # (AUTO) 0.03 x10^3/uL (0-0.1); BASOPHILS % (AUTO) 0 % (0-1); EOSINOPHILS # (AUTO) 0.02 x10^3/uL (0-0.4); EOSINOPHILS % (AUTO) 0 % (1-7); LYMPHOCYTES # (AUTO) 1.64 x10^3/uL (1-3.4); LYMPHOCYTES % (AUTO) 15 % (22-44); MD NO; MEAN CORPUSCULAR HEMOGLOBIN 29.3 pg (27.5-34.5); MEAN CORPUSCULAR HGB CONC 33.5 g/dL (33.2-36.2); MEAN CORPUSCULAR VOLUME 87.3 fL (81-97); MEAN PLATELET VOLUME 8.6 fL (7.4-10.4); MONOCYTES # (AUTO) 0.87 x10^3/uL (0.2-0.8); MONOCYTES % (AUTO) 8 % (2-9); NEUTROPHILS # (AUTO) 8.59 x10^3/uL (1.8-6.8); NEUTROPHILS % (AUTO) 77 % (42-75); PLATELET COUNT 277 x10^3/uL (130-400); RED BLOOD COUNT 4.44 x10^6/uL (4.38-5.82); RED CELL DISTRIBUTION WIDTH 16.3 % (9.4-14.8)
[2019-03-14 22:11] LABS: ALBUMIN 3.2 g/dL (3.4-5.0); ANION GAP 13 mmol/L (5-15); CALCIUM 9.2 mg/dL (8.5-10.1); CHLORIDE 96 mmol/L (98-107); CREATININE 1.03 mg/dL (0.7-1.3)
--- NOTE | 2019-03-14 22:37 | NUR ---
Unable to collect urine at this time.
--- NOTE | 2019-03-14 23:31 | NUR ---
Patient resting in gurney. He states pain has reduced to a 4/10 which is tolerable for patient.
--- NOTE | 2019-03-14 23:39 | NUR ---
Patient report given to SANJEEV Dodd. Patient to be transferred to room 345.
[2019-03-15 00:44] LABS: MICROSCOPIC INDICATED
[2019-03-15 00:48] LABS: CULTURE INDICATED? NO
[2019-03-15] MEDS ORDERED: DOCUSATE 100 MG CAPSULE PO PRN (01:00)
[2019-03-15] MEDS ORDERED: METHOCARBAMOL 500 MG TABLET PO PRN (01:00)
[2019-03-15] MEDS ORDERED: ENOXAPARIN 40 MG/0.4 ML SQ SCH (01:00)
[2019-03-15] MEDS ORDERED: hydrALAzine 20 MG/ML, 1ML IVPush PRN (01:00)
[2019-03-15 01:19] VITALS: BP 104/64
[2019-03-15] MEDS: SODIUM CHLORIDE 0.9% 1,000 ML IV SCH ×2 (07:54→20:43)
[2019-03-15 08:53] VITALS: BP 99/66
[2019-03-15] MEDS: KETOROLAC 30 MG/1 ML IV PRN (10:49)
[2019-03-15] MEDS: METHOCARBAMOL 500 MG TABLET PO SCH ×2 (11:39→20:43)
[2019-03-15] MEDS ORDERED: GADOTERATE 10 MMOL/20 ML SYR ONE (12:37)
[2019-03-15 13:06] VITALS: BP 99/66
[2019-03-15] MEDS ORDERED: PHARMACOKINETIC MONITORING MC PRN (15:00)
[2019-03-15] MEDS ORDERED: VANCOMYCIN PER PHARMACY MC PRN (15:00)
[2019-03-15] MEDS ORDERED: PHARMACOKINETIC CONSULTATION MC ONE (15:00)
[2019-03-15 15:24] LABS: HCT (SEDRATE) 34.6 % (39.2-51.8)
[2019-03-15] MEDS: PIPERACILLIN/TAZO/PMX 3.375GM 50 ML IV SCH ×2 (15:42→20:43)
[2019-03-15 15:50] LABS: INTERNATIONAL NORMALIZED RATIO 0.93 (0.93-1.1); PROTHROMBIN TIME 9.8 Seconds (9.6-11.5)
[2019-03-15] MEDS: VANCOMYCIN 1,500 MG in SODIUM CHLORIDE 0.9% 250 ML IV SCH (16:16)
[2019-03-15 18:44] VITALS: BP 126/77
[2019-03-15 19:45] LABS: AMPHETAMINE SCREEN, URINE Negative (Negative); BARBITURATE SCREEN, URINE Negative (Negative); BENZODIAZEPINE SCREEN, URINE Negative (Negative); CANNABINOID SCREEN, URINE Negative (Negative); COCAINE SCREEN, URINE Negative (Negative); METHADONE SCREEN, URINE Negative (Negative); OPIATE SCREEN, URINE Negative (Negative)
[2019-03-16 01:34] VITALS: BP 122/76
[2019-03-16] MEDS: KETOROLAC 30 MG/1 ML IV PRN (01:37)
[2019-03-16] MEDS: PIPERACILLIN/TAZO/PMX 3.375GM 50 ML IV SCH (02:43)
[2019-03-16] MEDS: METHOCARBAMOL 500 MG TABLET PO SCH ×3 (04:00→20:09)
[2019-03-16] MEDS: VANCOMYCIN 1,500 MG in SODIUM CHLORIDE 0.9% 250 ML IV SCH (04:21)
[2019-03-16 05:30] LABS: BASOPHILS # (AUTO) 0.02 x10^3/uL (0-0.1); BASOPHILS % (AUTO) 0 % (0-1); EOSINOPHILS # (AUTO) 0.03 x10^3/uL (0-0.4); EOSINOPHILS % (AUTO) 1 % (1-7); LYMPHOCYTES # (AUTO) 0.88 x10^3/uL (1-3.4); LYMPHOCYTES % (AUTO) 13 % (22-44); MD NO; MEAN CORPUSCULAR HGB CONC 33.2 g/dL (33.2-36.2); MEAN CORPUSCULAR VOLUME 87.3 fL (81-97); MEAN PLATELET VOLUME 8.7 fL (7.4-10.4); MONOCYTES # (AUTO) 0.48 x10^3/uL (0.2-0.8); MONOCYTES % (AUTO) 7 % (2-9); NEUTROPHILS # (AUTO) 5.21 x10^3/uL (1.8-6.8); NEUTROPHILS % (AUTO) 79 % (42-75); PLATELET COUNT 269 x10^3/uL (130-400); RED BLOOD COUNT 3.64 x10^6/uL (4.38-5.82); RED CELL DISTRIBUTION WIDTH 15.9 % (9.4-14.8)
[2019-03-16 05:32] LABS: ANION GAP 11 mmol/L (5-15); CALCIUM 8.5 mg/dL (8.5-10.1); CHLORIDE 103 mmol/L (98-107); CREATININE 1.73 mg/dL (0.7-1.3)
[2019-03-16] MEDS ORDERED: CEFTAROLINE 400 MG in SODIUM CHLORIDE 0.9% 100 ML IV SCH (08:30)
[2019-03-16] MEDS ORDERED: GADOTERATE 10 MMOL/20 ML SYR ONE (08:59)
[2019-03-16 09:58] VITALS: BP 123/83
[2019-03-16] MEDS: SODIUM CHLORIDE 0.9% 1,000 ML IV SCH ×2 (10:38→20:11)
[2019-03-16] MEDS: CEFTAROLINE 400 MG in SODIUM CHLORIDE 0.9% 100 ML IV SCH ×2 (10:38→22:16)
[2019-03-16 14:09] VITALS: BP 116/75
[2019-03-16 19:52] VITALS: BP 111/77
[2019-03-16] MEDS: LIDODERM 5% PATCH TD PRN (20:12)
[2019-03-17] MEDS: HYDROmorphone 2 MG/ML, 1ML IVPush PRN (00:46)
[2019-03-17 00:47] VITALS: BP 110/75
[2019-03-17] MEDS: METHOCARBAMOL 500 MG TABLET PO SCH ×3 (04:24→19:41)
[2019-03-17 05:38] LABS: CHLORIDE 113 mmol/L (98-107)
[2019-03-17 05:52] LABS: ALANINE AMINOTRANSFERASE 52 U/L (12-78); ALBUMIN 2.4 g/dL (3.4-5.0); ALKALINE PHOSPHATASE 156 U/L (45-117); ANION GAP 8 mmol/L (5-15); BILIRUBIN,TOTAL 0.3 mg/dL (0.2-1.0); CALCIUM 8.4 mg/dL (8.5-10.1); CREATININE 1.55 mg/dL (0.7-1.3); TOTAL PROTEIN 6.1 g/dL (6.4-8.2)
[2019-03-17] MEDS: SODIUM CHLORIDE 0.9% 1,000 ML IV SCH ×2 (05:54→12:15)
[2019-03-17 05:55] LABS: BASOPHILS # (AUTO) 0.04 x10^3/uL (0-0.1); BASOPHILS % (AUTO) 1 % (0-1); EOSINOPHILS % (AUTO) 2 % (1-7); LYMPHOCYTES # (AUTO) 1.49 x10^3/uL (1-3.4); LYMPHOCYTES % (AUTO) 30 % (22-44); MD NO; MEAN CORPUSCULAR HEMOGLOBIN 29.2 pg (27.5-34.5); MEAN CORPUSCULAR VOLUME 88.4 fL (81-97); MEAN PLATELET VOLUME 8.6 fL (7.4-10.4); MONOCYTES # (AUTO) 0.48 x10^3/uL (0.2-0.8); MONOCYTES % (AUTO) 10 % (2-9); NEUTROPHILS # (AUTO) 2.86 x10^3/uL (1.8-6.8); NEUTROPHILS % (AUTO) 58 % (42-75); PLATELET COUNT 303 x10^3/uL (130-400); RED BLOOD COUNT 3.65 x10^6/uL (4.38-5.82); RED CELL DISTRIBUTION WIDTH 16.2 % (9.4-14.8)
[2019-03-17 06:37] LABS: HCT (SEDRATE) 32.3 % (39.2-51.8)
[2019-03-17 08:25] VITALS: BP 112/73
[2019-03-17] MEDS ORDERED: COLCHICINE 0.6 MG CAPSULE PO ONE (08:30)
[2019-03-17] MEDS: CEFTAROLINE 400 MG in SODIUM CHLORIDE 0.9% 100 ML IV SCH ×2 (09:27→22:20)
[2019-03-17] MEDS: HYDROcodone/APAP 5/325 TABLET PO PRN ×2 (09:36→22:20)
[2019-03-17] MEDS ORDERED: LIDOCAINE 1%, 10ML ONE (11:09)
[2019-03-17 16:05] VITALS: BP 112/71
[2019-03-17] MEDS: COLCHICINE 0.6 MG CAPSULE PO SCH (18:32)
[2019-03-17 21:55] VITALS: BP 154/89
[2019-03-18] MEDS: LIDODERM 5% PATCH TD PRN (01:51)
[2019-03-18 02:19] VITALS: BP 137/86
[2019-03-18] MEDS: SODIUM CHLORIDE 0.9% 1,000 ML IV SCH ×3 (02:25→16:15)
[2019-03-18] MEDS: HYDROmorphone 2 MG/ML, 1ML IVPush PRN (02:25)
[2019-03-18] MEDS: METHOCARBAMOL 500 MG TABLET PO SCH ×3 (04:34→22:15)
[2019-03-18] MEDS: COLCHICINE 0.6 MG CAPSULE PO SCH ×2 (04:55→16:06)
[2019-03-18 05:22] LABS: BASOPHILS # (AUTO) 0.03 x10^3/uL (0-0.1); BASOPHILS % (AUTO) 1 % (0-1); EOSINOPHILS # (AUTO) 0.17 x10^3/uL (0-0.4); EOSINOPHILS % (AUTO) 4 % (1-7); LYMPHOCYTES # (AUTO) 1.76 x10^3/uL (1-3.4); LYMPHOCYTES % (AUTO) 37 % (22-44); MD NO; MEAN CORPUSCULAR HEMOGLOBIN 29.3 pg (27.5-34.5); MEAN CORPUSCULAR HGB CONC 33.5 g/dL (33.2-36.2); MEAN CORPUSCULAR VOLUME 87.6 fL (81-97); MONOCYTES # (AUTO) 0.45 x10^3/uL (0.2-0.8); MONOCYTES % (AUTO) 9 % (2-9); NEUTROPHILS # (AUTO) 2.35 x10^3/uL (1.8-6.8); NEUTROPHILS % (AUTO) 49 % (42-75); PLATELET COUNT 335 x10^3/uL (130-400); RED BLOOD COUNT 3.64 x10^6/uL (4.38-5.82); RED CELL DISTRIBUTION WIDTH 16.1 % (9.4-14.8)
[2019-03-18 05:24] LABS: ANION GAP 9 mmol/L (5-15); CALCIUM 8.2 mg/dL (8.5-10.1); CHLORIDE 110 mmol/L (98-107); CREATININE 1.45 mg/dL (0.7-1.3)
[2019-03-18] MEDS: HYDROcodone/APAP 5/325 TABLET PO PRN (08:16)
[2019-03-18 08:50] VITALS: BP 144/78
[2019-03-18] MEDS: CEFTAROLINE 400 MG in SODIUM CHLORIDE 0.9% 100 ML IV SCH ×2 (10:45→22:16)
[2019-03-18 13:40] VITALS: BP 137/76
[2019-03-18 19:44] VITALS: BP 152/91
[2019-03-19] MEDS: ONDANSETRON ODT 4 MG PO PRN (00:10)
[2019-03-19] MEDS: SODIUM CHLORIDE 0.9% 1,000 ML IV SCH ×3 (00:16→23:57)
[2019-03-19 01:39] VITALS: BP 146/88
[2019-03-19] MEDS: METHOCARBAMOL 500 MG TABLET PO SCH ×3 (05:30→21:10)
[2019-03-19] MEDS: COLCHICINE 0.6 MG CAPSULE PO SCH ×2 (05:30→17:28)
[2019-03-19 05:51] LABS: ANION GAP 8 mmol/L (5-15); CALCIUM 8.5 mg/dL (8.5-10.1); CHLORIDE 110 mmol/L (98-107)
[2019-03-19 05:53] LABS: CREATININE 1.36 mg/dL (0.7-1.3)
[2019-03-19 07:05] VITALS: BP 142/81
[2019-03-19] MEDS: CEFTAROLINE 400 MG in SODIUM CHLORIDE 0.9% 100 ML IV SCH ×2 (09:40→21:11)
[2019-03-19 14:43] VITALS: BP 145/92
[2019-03-19] MEDS ORDERED: MIDAZOLAM 1 MG/ML, 5ML ONE (15:35)
[2019-03-19] MEDS ORDERED: FENTANYL PF 100 MCG/2ML ONE (15:35)
[2019-03-19] MEDS ORDERED: FLUMAZENIL 0.1 MG/1 ML, 5ML ONE (15:36)
[2019-03-19] MEDS ORDERED: NALOXONE 1 MG/ML, 2ML ONE (15:36)
[2019-03-19] MEDS ORDERED: LIDOCAINE 1%, 10ML ONE (15:55)
[2019-03-19 19:15] VITALS: BP 149/93
[2019-03-20 02:23] VITALS: BP 153/83
[2019-03-20] MEDS: HYDROcodone/APAP 5/325 TABLET PO PRN (04:27)
[2019-03-20] MEDS: COLCHICINE 0.6 MG CAPSULE PO SCH ×2 (05:50→16:33)
[2019-03-20] MEDS: METHOCARBAMOL 500 MG TABLET PO SCH ×3 (05:50→21:04)
[2019-03-20 06:30] LABS: ANION GAP 5 mmol/L (5-15); CALCIUM 8.4 mg/dL (8.5-10.1); CHLORIDE 111 mmol/L (98-107); CREATININE 1.29 mg/dL (0.7-1.3)
[2019-03-20 06:31] VITALS: BP 145/96
[2019-03-20] MEDS: SODIUM CHLORIDE 0.9% 1,000 ML IV SCH (07:36)
[2019-03-20] MEDS: CEFTAROLINE 400 MG in SODIUM CHLORIDE 0.9% 100 ML IV SCH ×2 (09:49→22:37)
[2019-03-20 12:20] VITALS: BP 155/94
[2019-03-20 19:43] VITALS: BP 155/90
[2019-03-20] MEDS: ONDANSETRON ODT 4 MG PO PRN (23:45)
[2019-03-21 01:42] VITALS: BP 135/80
[2019-03-21] MEDS: COLCHICINE 0.6 MG CAPSULE PO SCH ×2 (05:17→16:21)
[2019-03-21] MEDS: METHOCARBAMOL 500 MG TABLET PO SCH ×3 (05:17→20:19)
[2019-03-21 07:35] VITALS: BP 125/81
[2019-03-21] MEDS: ONDANSETRON ODT 4 MG PO PRN (08:24)
[2019-03-21] MEDS: CEFTAROLINE 400 MG in SODIUM CHLORIDE 0.9% 100 ML IV SCH ×2 (10:04→22:01)
[2019-03-21 13:21] VITALS: BP 130/84
[2019-03-21 19:28] VITALS: BP 143/97
[2019-03-22 00:54] VITALS: BP 136/84
[2019-03-22] MEDS: COLCHICINE 0.6 MG CAPSULE PO SCH ×2 (04:54→17:16)
[2019-03-22] MEDS: METHOCARBAMOL 500 MG TABLET PO SCH ×3 (04:54→20:50)
[2019-03-22 09:24] VITALS: BP 132/87
[2019-03-22] MEDS: CEFTAROLINE 400 MG in SODIUM CHLORIDE 0.9% 100 ML IV SCH ×2 (09:56→21:39)
[2019-03-22] MEDS: HYDROcodone/APAP 5/325 TABLET PO PRN (10:02)
[2019-03-22 14:26] VITALS: BP 131/84
[2019-03-22 20:38] VITALS: BP 139/89
[2019-03-23 01:27] VITALS: BP 134/89
[2019-03-23] MEDS: COLCHICINE 0.6 MG CAPSULE PO SCH ×2 (04:51→17:22)
[2019-03-23] MEDS: METHOCARBAMOL 500 MG TABLET PO SCH ×3 (04:51→20:51)
[2019-03-23 08:37] VITALS: BP 123/83
[2019-03-23] MEDS: CEFTAROLINE 400 MG in SODIUM CHLORIDE 0.9% 100 ML IV SCH ×2 (10:36→22:18)
[2019-03-23 13:24] VITALS: BP 116/77
[2019-03-23 20:11] VITALS: BP 123/85
[2019-03-24 00:38] VITALS: BP 113/70
[2019-03-24 01:52] VITALS: BP 112/77
[2019-03-24] MEDS: METHOCARBAMOL 500 MG TABLET PO SCH ×3 (05:10→21:26)
[2019-03-24] MEDS: COLCHICINE 0.6 MG CAPSULE PO SCH ×2 (05:10→17:20)
[2019-03-24 06:10] LABS: ALBUMIN 3.3 g/dL (3.4-5.0); ANION GAP 10 mmol/L (5-15); CHLORIDE 104 mmol/L (98-107); CREATININE 1.53 mg/dL (0.7-1.3)
[2019-03-24 06:13] LABS: BASOPHILS # (AUTO) 0.05 x10^3/uL (0-0.1); BASOPHILS % (AUTO) 1 % (0-1); EOSINOPHILS # (AUTO) 0.19 x10^3/uL (0-0.4); EOSINOPHILS % (AUTO) 5 % (1-7); LYMPHOCYTES # (AUTO) 1.76 x10^3/uL (1-3.4); LYMPHOCYTES % (AUTO) 41 % (22-44); MD NO; MEAN CORPUSCULAR HGB CONC 32.8 g/dL (33.2-36.2); MEAN CORPUSCULAR VOLUME 88.5 fL (81-97); MEAN PLATELET VOLUME 7.7 fL (7.4-10.4); MONOCYTES # (AUTO) 0.36 x10^3/uL (0.2-0.8); MONOCYTES % (AUTO) 8 % (2-9); NEUTROPHILS # (AUTO) 1.98 x10^3/uL (1.8-6.8); NEUTROPHILS % (AUTO) 46 % (42-75); PLATELET COUNT 499 x10^3/uL (130-400); RED BLOOD COUNT 4.18 x10^6/uL (4.38-5.82); RED CELL DISTRIBUTION WIDTH 16.2 % (9.4-14.8)
[2019-03-24 08:26] VITALS: BP 109/73
[2019-03-24] MEDS ORDERED: MAGNESIUM SULFATE PMX 2GM/50ML 50 ML IV ONE (09:00)
[2019-03-24] MEDS: CEFTAROLINE 400 MG in SODIUM CHLORIDE 0.9% 100 ML IV SCH (09:17)
[2019-03-24 13:48] VITALS: BP 111/72
[2019-03-24 19:59] VITALS: BP 122/81
[2019-03-24] MEDS: CEFTAROLINE 600 MG in SODIUM CHLORIDE 0.9% 100 ML IV SCH (21:27)
[2019-03-25 01:29] VITALS: BP 111/77
[2019-03-25] MEDS: COLCHICINE 0.6 MG CAPSULE PO SCH ×2 (05:16→16:58)
[2019-03-25] MEDS: METHOCARBAMOL 500 MG TABLET PO SCH ×3 (05:16→20:55)
[2019-03-25 08:07] VITALS: BP 98/63
[2019-03-25] MEDS: CEFTAROLINE 600 MG in SODIUM CHLORIDE 0.9% 100 ML IV SCH ×2 (08:14→20:55)
[2019-03-25 13:24] VITALS: BP 117/77
[2019-03-25 19:35] VITALS: BP 135/86
[2019-03-26 00:32] VITALS: BP 115/76
[2019-03-26] MEDS: METHOCARBAMOL 500 MG TABLET PO SCH ×3 (05:51→20:33)
[2019-03-26] MEDS: COLCHICINE 0.6 MG CAPSULE PO SCH ×2 (05:51→17:32)
[2019-03-26 06:11] LABS: HCT (SEDRATE) 39.6 % (39.2-51.8)
[2019-03-26 06:15] LABS: ALBUMIN 3.8 g/dL (3.4-5.0); ANION GAP 9 mmol/L (5-15); CALCIUM 9.4 mg/dL (8.5-10.1); CHLORIDE 105 mmol/L (98-107)
[2019-03-26 06:19] LABS: ALANINE AMINOTRANSFERASE 33 U/L (12-78); ALKALINE PHOSPHATASE 130 U/L (45-117); BILIRUBIN,TOTAL 0.6 mg/dL (0.2-1.0); C-REACTIVE PROTEIN, QUANT 0.19 mg/dL (0.02-0.49); CREATININE 1.57 mg/dL (0.7-1.3); TOTAL PROTEIN 7.7 g/dL (6.4-8.2)
[2019-03-26 06:27] LABS: BASOPHILS # (AUTO) 0.07 x10^3/uL (0-0.1); BASOPHILS % (AUTO) 1 % (0-1); EOSINOPHILS # (AUTO) 0.13 x10^3/uL (0-0.4); EOSINOPHILS % (AUTO) 2 % (1-7); LYMPHOCYTES # (AUTO) 1.97 x10^3/uL (1-3.4); LYMPHOCYTES % (AUTO) 36 % (22-44); MD NO; MEAN CORPUSCULAR HGB CONC 32.6 g/dL (33.2-36.2); MEAN CORPUSCULAR VOLUME 88.9 fL (81-97); MEAN PLATELET VOLUME 7.6 fL (7.4-10.4); MONOCYTES # (AUTO) 0.36 x10^3/uL (0.2-0.8); MONOCYTES % (AUTO) 7 % (2-9); NEUTROPHILS # (AUTO) 2.93 x10^3/uL (1.8-6.8); NEUTROPHILS % (AUTO) 54 % (42-75); PLATELET COUNT 525 x10^3/uL (130-400); RED BLOOD COUNT 4.44 x10^6/uL (4.38-5.82); RED CELL DISTRIBUTION WIDTH 16.4 % (9.4-14.8)
[2019-03-26 07:56] VITALS: BP 120/79
[2019-03-26] MEDS: CEFTAROLINE 600 MG in SODIUM CHLORIDE 0.9% 100 ML IV SCH ×2 (08:31→20:33)
[2019-03-26] MEDS ORDERED: LIDOCAINE-MPF 1%, 5ML ONE (13:06)
[2019-03-26] MEDS ORDERED: FENTANYL PF 100 MCG/2ML ONE (13:27)
[2019-03-26] MEDS ORDERED: MIDAZOLAM 1 MG/ML, 5ML ONE (13:27)
[2019-03-26] MEDS ORDERED: FLUMAZENIL 0.1 MG/1 ML, 5ML ONE (13:27)
[2019-03-26] MEDS ORDERED: NALOXONE 1 MG/ML, 2ML ONE (13:27)
[2019-03-26 15:13] VITALS: BP 117/80
[2019-03-26 20:30] VITALS: BP 126/81
[2019-03-27 01:40] VITALS: BP 117/82
[2019-03-27] MEDS: METHOCARBAMOL 500 MG TABLET PO SCH ×3 (05:08→21:12)
[2019-03-27] MEDS: COLCHICINE 0.6 MG CAPSULE PO SCH ×2 (05:08→16:55)
[2019-03-27 06:43] VITALS: BP 118/77
[2019-03-27] MEDS: CEFTAROLINE 600 MG in SODIUM CHLORIDE 0.9% 100 ML IV SCH ×2 (08:44→21:12)
[2019-03-27] MEDS: ONDANSETRON ODT 4 MG PO PRN (12:37)
[2019-03-27 13:01] VITALS: BP 105/68
[2019-03-27 19:31] VITALS: BP 111/72
[2019-03-28 00:23] VITALS: BP 115/77
[2019-03-28] MEDS: ONDANSETRON ODT 4 MG PO PRN ×2 (00:34→10:18)
[2019-03-28] MEDS: METHOCARBAMOL 500 MG TABLET PO SCH ×3 (04:50→20:40)
[2019-03-28] MEDS: COLCHICINE 0.6 MG CAPSULE PO SCH ×2 (04:50→16:46)
[2019-03-28 09:48] VITALS: BP 106/69
[2019-03-28] MEDS: CEFTAROLINE 600 MG in SODIUM CHLORIDE 0.9% 100 ML IV SCH ×2 (10:19→20:40)
[2019-03-28 14:57] VITALS: BP 114/81
[2019-03-28 20:28] VITALS: BP 113/76
[2019-03-29 02:10] VITALS: BP 114/77
[2019-03-29] MEDS: COLCHICINE 0.6 MG CAPSULE PO SCH ×2 (05:08→17:40)
[2019-03-29] MEDS: METHOCARBAMOL 500 MG TABLET PO SCH ×3 (05:08→20:17)
[2019-03-29 07:08] VITALS: BP 106/73
[2019-03-29] MEDS: CEFTAROLINE 600 MG in SODIUM CHLORIDE 0.9% 100 ML IV SCH ×2 (09:15→20:18)
[2019-03-29] MEDS: ONDANSETRON ODT 4 MG PO PRN ×2 (09:20→20:17)
[2019-03-29 14:28] VITALS: BP 119/80
[2019-03-29 20:00] VITALS: BP 108/77
[2019-03-30 01:09] VITALS: BP 117/76
[2019-03-30] MEDS: COLCHICINE 0.6 MG CAPSULE PO SCH ×2 (04:46→17:26)
[2019-03-30] MEDS: METHOCARBAMOL 500 MG TABLET PO SCH ×3 (04:46→21:34)
[2019-03-30 08:56] VITALS: BP 117/76
[2019-03-30] MEDS: CEFTAROLINE 600 MG in SODIUM CHLORIDE 0.9% 100 ML IV SCH ×2 (09:17→21:34)
[2019-03-30] MEDS: ONDANSETRON ODT 4 MG PO PRN (09:30)
[2019-03-30 13:01] VITALS: BP 114/76
[2019-03-30 18:22] VITALS: BP 107/69
[2019-03-31 00:32] VITALS: BP 119/76
[2019-03-31] MEDS: METHOCARBAMOL 500 MG TABLET PO SCH ×3 (04:43→21:25)
[2019-03-31] MEDS: COLCHICINE 0.6 MG CAPSULE PO SCH ×2 (04:43→16:57)
[2019-03-31 07:18] VITALS: BP 124/84
[2019-03-31] MEDS: CEFTAROLINE 600 MG in SODIUM CHLORIDE 0.9% 100 ML IV SCH ×2 (09:57→21:25)
[2019-03-31 12:25] LABS: MEAN CORPUSCULAR HGB CONC 33.2 g/dL (33.2-36.2); MEAN CORPUSCULAR VOLUME 87.3 fL (81-97); MEAN PLATELET VOLUME 8.4 fL (7.4-10.4); PLATELET COUNT 333 x10^3/uL (130-400); RED BLOOD COUNT 4.34 x10^6/uL (4.38-5.82); RED CELL DISTRIBUTION WIDTH 16.2 % (9.4-14.8)
[2019-03-31 12:34] LABS: ANION GAP 8 mmol/L (5-15); CALCIUM 8.8 mg/dL (8.5-10.1); CHLORIDE 103 mmol/L (98-107); CREATININE 1.41 mg/dL (0.7-1.3)
[2019-03-31 12:46] LABS: BASOPHILS # (AUTO) 0.05 x10^3/uL (0-0.1); BASOPHILS % (AUTO) 2 % (0-1); EOSINOPHILS % (AUTO) 3 % (1-7); LYMPHOCYTES # (AUTO) 1.32 x10^3/uL (1-3.4); LYMPHOCYTES % (AUTO) 39 % (22-44); MD SCAN; MONOCYTES # (AUTO) 0.36 x10^3/uL (0.2-0.8); MONOCYTES % (AUTO) 11 % (2-9); NEUTROPHILS # (AUTO) 1.56 x10^3/uL (1.8-6.8); NEUTROPHILS % (AUTO) 46 % (42-75)
[2019-03-31 13:58] VITALS: BP 126/77
[2019-03-31] MEDS: ENOXAPARIN 40 MG/0.4 ML SQ SCH (14:41)
[2019-03-31 19:06] VITALS: BP 132/85
[2019-04-01 00:28] VITALS: BP 118/73
[2019-04-01] MEDS: ONDANSETRON ODT 4 MG PO PRN (05:50)
[2019-04-01] MEDS: COLCHICINE 0.6 MG CAPSULE PO SCH ×2 (06:08→16:39)
[2019-04-01] MEDS: METHOCARBAMOL 500 MG TABLET PO SCH ×3 (06:08→20:37)
[2019-04-01 07:58] VITALS: BP 123/68
[2019-04-01] MEDS: CEFTAROLINE 600 MG in SODIUM CHLORIDE 0.9% 100 ML IV SCH ×2 (08:36→20:38)
[2019-04-01 14:36] VITALS: BP 102/70
[2019-04-01] MEDS: ENOXAPARIN 40 MG/0.4 ML SQ SCH (16:39)
[2019-04-01 19:34] VITALS: BP 109/76
[2019-04-02 01:39] VITALS: BP 105/71
[2019-04-02] MEDS: COLCHICINE 0.6 MG CAPSULE PO SCH ×2 (04:18→16:51)
[2019-04-02] MEDS: METHOCARBAMOL 500 MG TABLET PO SCH ×3 (04:18→20:59)
[2019-04-02 06:03] LABS: ALBUMIN 3.8 g/dL (3.4-5.0); ANION GAP 7 mmol/L (5-15); CALCIUM 9.1 mg/dL (8.5-10.1); CHLORIDE 102 mmol/L (98-107)
[2019-04-02 06:16] LABS: MEAN CORPUSCULAR HEMOGLOBIN 29.3 pg (27.5-34.5); MEAN CORPUSCULAR HGB CONC 33.6 g/dL (33.2-36.2); MEAN CORPUSCULAR VOLUME 87.2 fL (81-97); MEAN PLATELET VOLUME 9.3 fL (7.4-10.4); PLATELET COUNT 260 x10^3/uL (130-400); RED BLOOD COUNT 4.46 x10^6/uL (4.38-5.82); RED CELL DISTRIBUTION WIDTH 16.7 % (9.4-14.8)
[2019-04-02 06:23] LABS: ALANINE AMINOTRANSFERASE 20 U/L (12-78); ALKALINE PHOSPHATASE 111 U/L (45-117); BILIRUBIN,TOTAL 0.7 mg/dL (0.2-1.0); C-REACTIVE PROTEIN, QUANT 0.08 mg/dL (0.02-0.49); CREATININE 1.47 mg/dL (0.7-1.3); TOTAL PROTEIN 7.4 g/dL (6.4-8.2)
[2019-04-02 06:38] LABS: BASOPHILS # (AUTO) 0.05 x10^3/uL (0-0.1); BASOPHILS % (AUTO) 2 % (0-1); EOSINOPHILS % (AUTO) 3 % (1-7); LYMPHOCYTES # (AUTO) 1.35 x10^3/uL (1-3.4); LYMPHOCYTES % (AUTO) 48 % (22-44); MD SCAN; MONOCYTES # (AUTO) 0.46 x10^3/uL (0.2-0.8); MONOCYTES % (AUTO) 16 % (2-9); NEUTROPHILS # (AUTO) 0.86 x10^3/uL (1.8-6.8); NEUTROPHILS % (AUTO) 31 % (42-75)
[2019-04-02 06:45] LABS: HCT (SEDRATE) 38.9 % (39.2-51.8)
[2019-04-02 06:56] VITALS: BP 121/79
[2019-04-02] MEDS: ONDANSETRON ODT 4 MG PO PRN (07:05)
[2019-04-02] MEDS: CEFTAROLINE 600 MG in SODIUM CHLORIDE 0.9% 100 ML IV SCH ×2 (09:06→20:59)
[2019-04-02] MEDS: ENOXAPARIN 40 MG/0.4 ML SQ SCH (14:43)
[2019-04-02 15:23] VITALS: BP 118/79
[2019-04-02 19:22] VITALS: BP 109/72
[2019-04-03 01:39] VITALS: BP 123/82
[2019-04-03] MEDS: METHOCARBAMOL 500 MG TABLET PO SCH ×3 (05:20→20:43)
[2019-04-03] MEDS: COLCHICINE 0.6 MG CAPSULE PO SCH (05:20)
[2019-04-03 07:44] VITALS: BP 108/71
[2019-04-03] MEDS: CEFTAROLINE 600 MG in SODIUM CHLORIDE 0.9% 100 ML IV SCH ×2 (09:53→20:43)
[2019-04-03] MEDS ORDERED: ACETAMINOPHEN 500 MG TABLET PO PRN (11:00)
[2019-04-03 13:42] VITALS: BP 111/71
[2019-04-03] MEDS: ENOXAPARIN 40 MG/0.4 ML SQ SCH (14:14)
[2019-04-03 19:35] VITALS: BP 117/79
[2019-04-04 00:45] VITALS: BP 99/53
[2019-04-04] MEDS: METHOCARBAMOL 500 MG TABLET PO SCH ×3 (04:51→20:43)
[2019-04-04 05:29] LABS: MEAN CORPUSCULAR HEMOGLOBIN 29.4 pg (27.5-34.5); MEAN CORPUSCULAR HGB CONC 33.3 g/dL (33.2-36.2); MEAN CORPUSCULAR VOLUME 88.4 fL (81-97); PLATELET COUNT 181 x10^3/uL (130-400); RED BLOOD COUNT 4.05 x10^6/uL (4.38-5.82); RED CELL DISTRIBUTION WIDTH 16.2 % (9.4-14.8)
[2019-04-04 05:30] LABS: ANION GAP 7 mmol/L (5-15); CHLORIDE 108 mmol/L (98-107); CREATININE 1.42 mg/dL (0.7-1.3)
[2019-04-04 05:46] LABS: MD YES
[2019-04-04 05:50] LABS: BAND#(MANUAL) 0.02 x10^3/uL; BANDS%(MANUAL) 1 % (0-7); BASOS#(MANUAL) 0.04 x10^3/uL (0-0.1); BASOS% (MANUAL) 2 % (0-1); EOS#(MANUAL) 0.04 x10^3/uL (0.0-0.4); EOS% (MANUAL) 2 % (1-7); LYMPH#(MANUAL) 1.26 x10^3/uL (1-3.4); LYMPHS% (MANUAL) 60 % (22-44); MONOS#(MANUAL) 0.32 x10^3/uL (0.3-2.7); MONOS% (MANUAL) 15 % (2-9); REACTIVE LYMPHS # (MANUAL) 0.02 x10^3/uL (0-0); REACTIVE LYMPHS % (MANUAL) 1 % (0-0); SEGS% (MANUAL) 19 % (42-75)
[2019-04-04 05:52] LABS: <PLATELET ESTIMATE> ADEQUATE; <PLT MORPHOLOGY> NORMAL PLT MORPH; ANISOCYTOSIS 1+
[2019-04-04 08:00] VITALS: BP 107/71
[2019-04-04 08:46] LABS: % IRON SATURATION 28 % (20-55); IRON LEVEL 64 mcg/dL (65-175); TOTAL IRON BINDING CAPACITY 231 mcg/dL (250-450)
[2019-04-04] MEDS: COLCHICINE 0.6 MG CAPSULE PO SCH (09:09)
[2019-04-04] MEDS: CEFTAROLINE 600 MG in SODIUM CHLORIDE 0.9% 100 ML IV SCH ×2 (09:10→20:43)
[2019-04-04 14:00] VITALS: BP 111/72
[2019-04-04] MEDS: ENOXAPARIN 40 MG/0.4 ML SQ SCH (14:30)
[2019-04-04 19:10] VITALS: BP 101/67
[2019-04-05 01:37] VITALS: BP 108/75
[2019-04-05] MEDS: METHOCARBAMOL 500 MG TABLET PO SCH ×3 (04:55→20:04)
[2019-04-05] MEDS: COLCHICINE 0.6 MG CAPSULE PO SCH (09:01)
[2019-04-05] MEDS: CEFTAROLINE 600 MG in SODIUM CHLORIDE 0.9% 100 ML IV SCH ×2 (09:02→20:04)
[2019-04-05 09:17] VITALS: BP 106/69
[2019-04-05] MEDS: ENOXAPARIN 40 MG/0.4 ML SQ SCH (13:26)
[2019-04-05 14:26] VITALS: BP 88/55
[2019-04-05 19:12] VITALS: BP 101/64
[2019-04-06 00:45] VITALS: BP 118/79
[2019-04-06] MEDS: METHOCARBAMOL 500 MG TABLET PO SCH ×3 (04:48→20:10)
[2019-04-06 07:30] VITALS: BP 111/71
[2019-04-06] MEDS: COLCHICINE 0.6 MG CAPSULE PO SCH (09:43)
[2019-04-06] MEDS: CEFTAROLINE 600 MG in SODIUM CHLORIDE 0.9% 100 ML IV SCH (09:43)
[2019-04-06] MEDS: HYDROcodone/APAP 5/325 TABLET PO PRN (09:55)
[2019-04-06 12:32] LABS: MEAN CORPUSCULAR HEMOGLOBIN 28.7 pg (27.5-34.5); MEAN CORPUSCULAR HGB CONC 32.8 g/dL (33.2-36.2); MEAN CORPUSCULAR VOLUME 87.4 fL (81-97); MEAN PLATELET VOLUME 9.1 fL (7.4-10.4); PLATELET COUNT 200 x10^3/uL (130-400); RED BLOOD COUNT 4.24 x10^6/uL (4.38-5.82); RED CELL DISTRIBUTION WIDTH 15.8 % (9.4-14.8)
[2019-04-06 12:54] LABS: MD YES
[2019-04-06 13:00] LABS: <PLATELET ESTIMATE> ADEQUATE; <PLT MORPHOLOGY> NORMAL PLT MORPH; ANISOCYTOSIS 1+; BAND#(MANUAL) 0.02 x10^3/uL; BANDS%(MANUAL) 1 % (0-7); BASOS#(MANUAL) 0.04 x10^3/uL (0-0.1); BASOS% (MANUAL) 2 % (0-1); EOS#(MANUAL) 0.04 x10^3/uL (0.0-0.4); EOS% (MANUAL) 2 % (1-7); LYMPH#(MANUAL) 1.49 x10^3/uL (1-3.4); LYMPHS% (MANUAL) 71 % (22-44); MONOS#(MANUAL) 0.38 x10^3/uL (0.3-2.7); MONOS% (MANUAL) 18 % (2-9); SEG#(MANUAL) 0.13 x10^3/uL (1.8-6.8); SEGS% (MANUAL) 6 % (42-75)
[2019-04-06] MEDS: DAPTOMYCIN 500 MG in SODIUM CHLORIDE 0.9% 100 ML IVPB SCH (14:10)
[2019-04-06] MEDS: ENOXAPARIN 40 MG/0.4 ML SQ SCH (14:10)
[2019-04-06 14:31] VITALS: BP 104/81
[2019-04-06 19:06] VITALS: BP 113/76
[2019-04-07 00:56] VITALS: BP 110/69
[2019-04-07] MEDS: METHOCARBAMOL 500 MG TABLET PO SCH ×3 (04:43→20:57)
[2019-04-07 06:04] LABS: MEAN CORPUSCULAR HEMOGLOBIN 29.5 pg (27.5-34.5); MEAN CORPUSCULAR HGB CONC 34.1 g/dL (33.2-36.2); MEAN CORPUSCULAR VOLUME 86.6 fL (81-97); MEAN PLATELET VOLUME 9.6 fL (7.4-10.4); PLATELET COUNT 186 x10^3/uL (130-400)
[2019-04-07 06:11] LABS: ANION GAP 9 mmol/L (5-15); CALCIUM 8.8 mg/dL (8.5-10.1); CHLORIDE 105 mmol/L (98-107); CREATININE 1.29 mg/dL (0.7-1.3)
[2019-04-07 07:58] LABS: MD YES
[2019-04-07 08:01] LABS: EOS#(MANUAL) 0.03 x10^3/uL (0.0-0.4); EOS% (MANUAL) 1 % (1-7); LYMPH#(MANUAL) 2.03 x10^3/uL (1-3.4); LYMPHS% (MANUAL) 81 % (22-44); MONOS#(MANUAL) 0.35 x10^3/uL (0.3-2.7); MONOS% (MANUAL) 14 % (2-9); SEGS% (MANUAL) 4 % (42-75)
[2019-04-07 08:02] LABS: <PLATELET ESTIMATE> ADEQUATE; <PLT MORPHOLOGY> NORMAL PLT MORPH; ANISOCYTOSIS 1+
[2019-04-07] MEDS: COLCHICINE 0.6 MG CAPSULE PO SCH (08:58)
[2019-04-07 09:56] VITALS: BP 99/65
[2019-04-07] MEDS: DAPTOMYCIN 500 MG in SODIUM CHLORIDE 0.9% 100 ML IVPB SCH (14:01)
[2019-04-07] MEDS: ENOXAPARIN 40 MG/0.4 ML SQ SCH (14:03)
[2019-04-07 14:16] VITALS: BP 110/73
[2019-04-07 20:40] VITALS: BP 120/77
[2019-04-08 02:26] VITALS: BP 113/73
[2019-04-08] MEDS: METHOCARBAMOL 500 MG TABLET PO SCH ×3 (05:32→22:14)
[2019-04-08 06:00] LABS: MEAN CORPUSCULAR HEMOGLOBIN 29.4 pg (27.5-34.5); MEAN CORPUSCULAR HGB CONC 33.7 g/dL (33.2-36.2); MEAN CORPUSCULAR VOLUME 87.1 fL (81-97); MEAN PLATELET VOLUME 8.8 fL (7.4-10.4); PLATELET COUNT 201 x10^3/uL (130-400); RED BLOOD COUNT 4.14 x10^6/uL (4.38-5.82)
[2019-04-08 06:06] LABS: ANION GAP 6 mmol/L (5-15); CALCIUM 8.9 mg/dL (8.5-10.1); CHLORIDE 107 mmol/L (98-107); CREATININE 1.23 mg/dL (0.7-1.3)
[2019-04-08 06:17] LABS: MD YES
[2019-04-08 06:21] LABS: BASOS#(MANUAL) 0.03 x10^3/uL (0-0.1); BASOS% (MANUAL) 1 % (0-1); EOS#(MANUAL) 0.14 x10^3/uL (0.0-0.4); EOS% (MANUAL) 5 % (1-7); LYMPHS% (MANUAL) 74 % (22-44); MONOS#(MANUAL) 0.51 x10^3/uL (0.3-2.7); MONOS% (MANUAL) 19 % (2-9); SEG#(MANUAL) 0.03 x10^3/uL (1.8-6.8); SEGS% (MANUAL) 1 % (42-75)
[2019-04-08 06:23] LABS: <PLATELET ESTIMATE> ADEQUATE; <PLT MORPHOLOGY> NORMAL PLT MORPH; ANISOCYTOSIS 1+
[2019-04-08 06:44] VITALS: BP 113/68
[2019-04-08] MEDS: COLCHICINE 0.6 MG CAPSULE PO SCH (07:38)
[2019-04-08] MEDS: DAPTOMYCIN 500 MG in SODIUM CHLORIDE 0.9% 100 ML IVPB SCH (13:57)
[2019-04-08] MEDS: ENOXAPARIN 40 MG/0.4 ML SQ SCH (13:58)
[2019-04-08 14:42] VITALS: BP 109/74
[2019-04-08 18:38] VITALS: BP 110/72
[2019-04-08] MEDS ORDERED: TBO-FILGRASTIM 480 MCG/0.8 ML SQ ONE (21:00)
[2019-04-09 00:41] VITALS: BP 101/64
[2019-04-09] MEDS ORDERED: CATHFLO-ALTEPLASE 2 MG/2 ML CATHFLUSH ONE ×2 (04:30→13:30)
[2019-04-09] MEDS: METHOCARBAMOL 500 MG TABLET PO SCH ×3 (05:25→21:29)
[2019-04-09 05:32] LABS: MEAN CORPUSCULAR HEMOGLOBIN 29.3 pg (27.5-34.5); MEAN CORPUSCULAR HGB CONC 33.2 g/dL (33.2-36.2); PLATELET COUNT 196 x10^3/uL (130-400); RED BLOOD COUNT 4.23 x10^6/uL (4.38-5.82); RED CELL DISTRIBUTION WIDTH 15.9 % (9.4-14.8)
[2019-04-09 05:33] LABS: ALANINE AMINOTRANSFERASE 32 U/L (12-78); ALBUMIN 3.6 g/dL (3.4-5.0); ANION GAP 9 mmol/L (5-15); CALCIUM 8.9 mg/dL (8.5-10.1); CHLORIDE 107 mmol/L (98-107)
[2019-04-09 05:36] LABS: ALKALINE PHOSPHATASE 103 U/L (45-117); BILIRUBIN,TOTAL 0.4 mg/dL (0.2-1.0); C-REACTIVE PROTEIN, QUANT 0.84 mg/dL (0.02-0.49); CREATINE KINASE, TOTAL 39 U/L (39-308); CREATININE 1.26 mg/dL (0.7-1.3)
[2019-04-09 05:38] LABS: HCT (SEDRATE) 37.2 % (39.2-51.8)
[2019-04-09 05:56] LABS: MD YES
[2019-04-09 05:59] LABS: <PLATELET ESTIMATE> ADEQUATE; <PLT MORPHOLOGY> NORMAL PLT MORPH; ANISOCYTOSIS 1+; BAND#(MANUAL) 0.27 x10^3/uL; BANDS%(MANUAL) 7 % (0-7); EOS#(MANUAL) 0.34 x10^3/uL (0.0-0.4); EOS% (MANUAL) 9 % (1-7); LYMPH#(MANUAL) 1.98 x10^3/uL (1-3.4); LYMPHS% (MANUAL) 52 % (22-44); MONOS#(MANUAL) 0.61 x10^3/uL (0.3-2.7); MONOS% (MANUAL) 16 % (2-9); SEG#(MANUAL) 0.61 x10^3/uL (1.8-6.8); SEGS% (MANUAL) 16 % (42-75)
[2019-04-09 06:37] VITALS: BP 113/68
[2019-04-09] MEDS: COLCHICINE 0.6 MG CAPSULE PO SCH (10:26)
[2019-04-09 12:39] VITALS: BP 117/81
[2019-04-09] MEDS ORDERED: TBO-FILGRASTIM 480 MCG/0.8 ML SQ ONE (13:30)
[2019-04-09] MEDS: ENOXAPARIN 40 MG/0.4 ML SQ SCH (16:46)
[2019-04-09] MEDS: DAPTOMYCIN 500 MG in SODIUM CHLORIDE 0.9% 100 ML IVPB SCH (19:05)
[2019-04-09 19:50] VITALS: BP 122/75
[2019-04-10] MEDS: HYDROcodone/APAP 5/325 TABLET PO PRN (01:25)
[2019-04-10 01:32] VITALS: BP 102/61
[2019-04-10] MEDS: METHOCARBAMOL 500 MG TABLET PO SCH ×3 (06:09→21:10)
[2019-04-10 06:16] LABS: MEAN CORPUSCULAR HEMOGLOBIN 29.3 pg (27.5-34.5); MEAN CORPUSCULAR VOLUME 88.7 fL (81-97); MEAN PLATELET VOLUME 8.4 fL (7.4-10.4); PLATELET COUNT 211 x10^3/uL (130-400); RED BLOOD COUNT 4.19 x10^6/uL (4.38-5.82); RED CELL DISTRIBUTION WIDTH 16.2 % (9.4-14.8)
[2019-04-10 06:38] LABS: MD YES
[2019-04-10 06:40] LABS: BAND#(MANUAL) 6.27 x10^3/uL; BANDS%(MANUAL) 41 % (0-7); EOS#(MANUAL) 0.77 x10^3/uL (0.0-0.4); EOS% (MANUAL) 5 % (1-7); LYMPH#(MANUAL) 3.06 x10^3/uL (1-3.4); LYMPHS% (MANUAL) 20 % (22-44); METAMYELOCYTES# (MANUAL) 0.46 x10^3/uL (0-0); METAMYELOCYTES% (MANUAL) 3 % (0-1); MONOS#(MANUAL) 1.07 x10^3/uL (0.3-2.7); MONOS% (MANUAL) 7 % (2-9); SEG#(MANUAL) 3.67 x10^3/uL (1.8-6.8); SEGS% (MANUAL) 24 % (42-75)
[2019-04-10 06:41] LABS: ANISOCYTOSIS 1+
[2019-04-10 06:42] LABS: <PLATELET ESTIMATE> ADEQUATE; <PLT MORPHOLOGY> NORMAL PLT MORPH
[2019-04-10 07:08] VITALS: BP 94/58
[2019-04-10] MEDS: COLCHICINE 0.6 MG CAPSULE PO SCH (09:26)
[2019-04-10 12:57] VITALS: BP 107/70
[2019-04-10] MEDS: DAPTOMYCIN 500 MG in SODIUM CHLORIDE 0.9% 100 ML IVPB SCH (13:34)
[2019-04-10] MEDS: ENOXAPARIN 40 MG/0.4 ML SQ SCH (13:34)
[2019-04-10 19:48] VITALS: BP 112/80
[2019-04-11 02:18] VITALS: BP 94/59
[2019-04-11] MEDS: METHOCARBAMOL 500 MG TABLET PO SCH ×3 (05:09→19:51)
[2019-04-11 09:07] VITALS: BP 108/70
[2019-04-11] MEDS: COLCHICINE 0.6 MG CAPSULE PO SCH (09:25)
[2019-04-11 10:13] LABS: MEAN CORPUSCULAR HEMOGLOBIN 29.1 pg (27.5-34.5); MEAN CORPUSCULAR HGB CONC 32.5 g/dL (33.2-36.2); MEAN CORPUSCULAR VOLUME 89.5 fL (81-97); MEAN PLATELET VOLUME 8.1 fL (7.4-10.4); PLATELET COUNT 270 x10^3/uL (130-400); RED CELL DISTRIBUTION WIDTH 16.4 % (9.4-14.8)
[2019-04-11 10:25] LABS: MD YES
[2019-04-11 10:28] LABS: <PLATELET ESTIMATE> ADEQUATE; <PLT MORPHOLOGY> NORMAL PLT MORPH; ANISOCYTOSIS 1+; BAND#(MANUAL) 2.12 x10^3/uL; BANDS%(MANUAL) 13 % (0-7); EOS#(MANUAL) 0.49 x10^3/uL (0.0-0.4); EOS% (MANUAL) 3 % (1-7); LYMPHS% (MANUAL) 19 % (22-44); MONOS#(MANUAL) 0.98 x10^3/uL (0.3-2.7); MONOS% (MANUAL) 6 % (2-9); NRBC % (MANUAL) 1 % (0-1); SEG#(MANUAL) 9.62 x10^3/uL (1.8-6.8); SEGS% (MANUAL) 59 % (42-75)
[2019-04-11] MEDS: DAPTOMYCIN 500 MG in SODIUM CHLORIDE 0.9% 100 ML IVPB SCH (14:46)
[2019-04-11] MEDS: ENOXAPARIN 40 MG/0.4 ML SQ SCH (14:48)
[2019-04-11 15:21] VITALS: BP 115/73
[2019-04-11 20:13] VITALS: BP 108/73
[2019-04-12] MEDS: HYDROcodone/APAP 5/325 TABLET PO PRN ×3 (00:02→21:38)
[2019-04-12 00:05] VITALS: BP 113/74
[2019-04-12] MEDS: METHOCARBAMOL 500 MG TABLET PO SCH ×3 (05:10→21:35)
[2019-04-12 06:27] LABS: BASOPHILS # (AUTO) 0.04 x10^3/uL (0-0.1); BASOPHILS % (AUTO) 0 % (0-1); EOSINOPHILS # (AUTO) 0.42 x10^3/uL (0-0.4); EOSINOPHILS % (AUTO) 4 % (1-7); LYMPHOCYTES % (AUTO) 25 % (22-44); MD NO; MEAN CORPUSCULAR HGB CONC 33.2 g/dL (33.2-36.2); MEAN CORPUSCULAR VOLUME 87.5 fL (81-97); MEAN PLATELET VOLUME 8.5 fL (7.4-10.4); MONOCYTES # (AUTO) 0.82 x10^3/uL (0.2-0.8); MONOCYTES % (AUTO) 9 % (2-9); NEUTROPHILS # (AUTO) 5.81 x10^3/uL (1.8-6.8); NEUTROPHILS % (AUTO) 61 % (42-75); PLATELET COUNT 217 x10^3/uL (130-400); RED BLOOD COUNT 3.98 x10^6/uL (4.38-5.82); RED CELL DISTRIBUTION WIDTH 15.8 % (9.4-14.8)
[2019-04-12 07:56] VITALS: BP 107/68
[2019-04-12] MEDS: COLCHICINE 0.6 MG CAPSULE PO SCH (09:16)
[2019-04-12] MEDS: DAPTOMYCIN 500 MG in SODIUM CHLORIDE 0.9% 100 ML IVPB SCH (14:54)
[2019-04-12] MEDS: ENOXAPARIN 40 MG/0.4 ML SQ SCH (14:55)
[2019-04-12 15:03] VITALS: BP 113/75
[2019-04-12 19:30] VITALS: BP 122/84
[2019-04-13 01:29] VITALS: BP 114/79
[2019-04-13] MEDS: METHOCARBAMOL 500 MG TABLET PO SCH ×3 (05:25→21:31)
[2019-04-13 07:18] VITALS: BP 105/70
[2019-04-13] MEDS: COLCHICINE 0.6 MG CAPSULE PO SCH (10:23)
[2019-04-13 14:10] VITALS: BP 112/73
[2019-04-13] MEDS: DAPTOMYCIN 500 MG in SODIUM CHLORIDE 0.9% 100 ML IVPB SCH (14:38)
[2019-04-13] MEDS: ENOXAPARIN 40 MG/0.4 ML SQ SCH (14:38)
[2019-04-13 19:06] VITALS: BP 115/74
[2019-04-13] MEDS: HYDROcodone/APAP 5/325 TABLET PO PRN (21:31)
[2019-04-14 01:45] VITALS: BP 122/87
[2019-04-14] MEDS: METHOCARBAMOL 500 MG TABLET PO SCH ×3 (04:30→20:18)
[2019-04-14] MEDS: HYDROcodone/APAP 5/325 TABLET PO PRN (04:33)
[2019-04-14 05:10] LABS: BASOPHILS # (AUTO) 0.02 x10^3/uL (0-0.1); BASOPHILS % (AUTO) 0 % (0-1); EOSINOPHILS # (AUTO) 0.36 x10^3/uL (0-0.4); EOSINOPHILS % (AUTO) 5 % (1-7); LYMPHOCYTES # (AUTO) 2.07 x10^3/uL (1-3.4); LYMPHOCYTES % (AUTO) 29 % (22-44); MD NO; MEAN CORPUSCULAR HEMOGLOBIN 28.9 pg (27.5-34.5); MEAN CORPUSCULAR HGB CONC 32.9 g/dL (33.2-36.2); MEAN CORPUSCULAR VOLUME 87.9 fL (81-97); MEAN PLATELET VOLUME 8.3 fL (7.4-10.4); MONOCYTES # (AUTO) 0.69 x10^3/uL (0.2-0.8); MONOCYTES % (AUTO) 10 % (2-9); NEUTROPHILS # (AUTO) 4.04 x10^3/uL (1.8-6.8); NEUTROPHILS % (AUTO) 56 % (42-75); PLATELET COUNT 202 x10^3/uL (130-400); RED BLOOD COUNT 4.08 x10^6/uL (4.38-5.82); RED CELL DISTRIBUTION WIDTH 16.3 % (9.4-14.8)
[2019-04-14 07:29] VITALS: BP 101/66
[2019-04-14] MEDS: COLCHICINE 0.6 MG CAPSULE PO SCH ×3 (09:00→20:18)
[2019-04-14] MEDS: DAPTOMYCIN 500 MG in SODIUM CHLORIDE 0.9% 100 ML IVPB SCH (13:32)
[2019-04-14] MEDS: ENOXAPARIN 40 MG/0.4 ML SQ SCH (13:32)
[2019-04-14 14:24] VITALS: BP 107/69
[2019-04-14 19:38] VITALS: BP 104/82
[2019-04-15 00:59] VITALS: BP 97/68
[2019-04-15] MEDS: METHOCARBAMOL 500 MG TABLET PO SCH ×3 (05:43→20:19)
[2019-04-15 08:08] VITALS: BP 110/80
[2019-04-15] MEDS: COLCHICINE 0.6 MG CAPSULE PO SCH ×2 (08:48→20:19)
[2019-04-15] MEDS: ENOXAPARIN 40 MG/0.4 ML SQ SCH (13:37)
[2019-04-15] MEDS: DAPTOMYCIN 500 MG in SODIUM CHLORIDE 0.9% 100 ML IVPB SCH (13:58)
[2019-04-15 15:15] VITALS: BP 114/64
[2019-04-15 20:08] VITALS: BP 105/70
[2019-04-15] MEDS: HYDROcodone/APAP 5/325 TABLET PO PRN (20:23)
[2019-04-16 03:13] VITALS: BP 96/65
[2019-04-16] MEDS: METHOCARBAMOL 500 MG TABLET PO SCH ×3 (05:03→23:15)
[2019-04-16 05:28] LABS: BASOPHILS # (AUTO) 0.02 x10^3/uL (0-0.1); BASOPHILS % (AUTO) 1 % (0-1); EOSINOPHILS # (AUTO) 0.31 x10^3/uL (0-0.4); EOSINOPHILS % (AUTO) 7 % (1-7); LYMPHOCYTES # (AUTO) 2.04 x10^3/uL (1-3.4); LYMPHOCYTES % (AUTO) 45 % (22-44); MD NO; MEAN PLATELET VOLUME 8.4 fL (7.4-10.4); MONOCYTES % (AUTO) 9 % (2-9); NEUTROPHILS # (AUTO) 1.75 x10^3/uL (1.8-6.8); NEUTROPHILS % (AUTO) 39 % (42-75); PLATELET COUNT 197 x10^3/uL (130-400); RED BLOOD COUNT 4.07 x10^6/uL (4.38-5.82); RED CELL DISTRIBUTION WIDTH 15.8 % (9.4-14.8)
[2019-04-16 05:32] LABS: ALANINE AMINOTRANSFERASE 25 U/L (12-78); ALBUMIN 3.5 g/dL (3.4-5.0); ANION GAP 6 mmol/L (5-15); C-REACTIVE PROTEIN, QUANT 0.23 mg/dL (0.02-0.49); CALCIUM 8.8 mg/dL (8.5-10.1); CHLORIDE 104 mmol/L (98-107); CREATININE 1.15 mg/dL (0.7-1.3)
[2019-04-16 05:35] LABS: ALKALINE PHOSPHATASE 95 U/L (45-117); BILIRUBIN,TOTAL 0.4 mg/dL (0.2-1.0); TOTAL PROTEIN 6.6 g/dL (6.4-8.2)
[2019-04-16 06:11] LABS: HCT (SEDRATE) 35.8 % (39.2-51.8)
[2019-04-16 07:26] VITALS: BP 100/69
[2019-04-16] MEDS: COLCHICINE 0.6 MG CAPSULE PO SCH ×2 (08:34→17:55)
[2019-04-16] MEDS: HYDROcodone/APAP 5/325 TABLET PO PRN ×2 (08:38→23:15)
[2019-04-16] MEDS ORDERED: GADOTERATE 10 MMOL/20 ML SYR ONE (14:15)
[2019-04-16] MEDS: DAPTOMYCIN 500 MG in SODIUM CHLORIDE 0.9% 100 ML IVPB SCH (15:08)
[2019-04-16] MEDS: ENOXAPARIN 40 MG/0.4 ML SQ SCH (15:08)
[2019-04-16 15:23] VITALS: BP 111/76
[2019-04-16 19:47] VITALS: BP 126/85
[2019-04-17 01:45] VITALS: BP 108/71
[2019-04-17] MEDS: METHOCARBAMOL 500 MG TABLET PO SCH ×2 (05:28→14:26)
[2019-04-17 07:55] VITALS: BP 107/71
[2019-04-17] MEDS ORDERED: LINEZOLID 600 MG TABLET PO SCH (11:00)
[2019-04-17 13:10] VITALS: BP 112/76
[2019-04-17] MEDS: ENOXAPARIN 40 MG/0.4 ML SQ SCH (14:26)
[2019-04-17] MEDS ORDERED: LINE600T15 PO (14:33)
[2019-04-17] MEDS: COLCHICINE 0.6 MG CAPSULE PO SCH (16:29)
== END 2019-04-17 18:00 | disposition home or self-care (01) | DRG 344 ==
LOC: ED 22:58 → UNDOADMIN 23:53 → EDIP 23:53 → 3N 23:56
PROVIDERS: ADMIT Internal Medicine; ATTEND Family Medicine
PROC: 0R9G3ZZ Drainage of Right Acromioclavicular Joint, Percutaneous Approach (ICD-10-PCS; 2019-03-16)
PROC: 0P943ZX Drainage of Thoracic Vertebra, Percutaneous Approach, Diagnostic (ICD-10-PCS; 2019-03-19)
PROC: 02HV33Z Insertion of Infusion Device into Superior Vena Cava, Percutaneous Approach (ICD-10-PCS; principal; 2019-04-02)
PROC: B5181ZA Fluoroscopy of Superior Vena Cava using Low Osmolar Contrast, Guidance (ICD-10-PCS; 2019-04-02)
PROC: B548ZZA Ultrasonography of Superior Vena Cava, Guidance (ICD-10-PCS; 2019-04-02)
PROC: 02HV33Z Insertion of Infusion Device into Superior Vena Cava, Percutaneous Approach (ICD-10-PCS; 2019-04-10)
PROC: B548ZZA Ultrasonography of Superior Vena Cava, Guidance (ICD-10-PCS; 2019-04-10)
DX: M46.24 Osteomyelitis of vertebra, thoracic region (principal); N17.0 Acute kidney failure with tubular necrosis; M06.4 Inflammatory polyarthropathy; D70.9 Neutropenia, unspecified; E87.2 Acidosis; E87.1 Hypo-osmolality and hyponatremia; L02.413 Cutaneous abscess of right upper limb; M10.00 Idiopathic gout, unspecified site; E55.9 Vitamin D deficiency, unspecified; D64.9 Anemia, unspecified; M11.211 Other chondrocalcinosis, right shoulder; M19.011 Primary osteoarthritis, right shoulder; M54.40 Lumbago with sciatica, unspecified side; T36.1X5A Adverse effect of cephalosporins and other beta-lactam antibiotics, initial encounter; Y92.89 Other specified places as the place of occurrence of the external cause
CPT/HCPCS: J3490 ×2; 10030; 10160; 36415; 36573; 72156; 72157; 75989; 77012; 80048; 80053; 80069; 80307; 81001; 82040; 82550; 83540; 83550; 83735; 84100; 84550; 85025; 85610; 85651; 85730; 86140; 87015; 87040; 87070; 87075; 87102; 87116; 87205; 87206; 89060; 96374; 96375; 99156; 99157; G0378; J0712; J0878; J1170; J1650; J1885; J2250; J2543; J2997; J3010; J3370; Q0162; A9575; C1751; J1447; J2310; J3475; J7030; J7050; J7512

== ENCOUNTER 2019-07-16 22:33 | Emergency (ER) | payer MEDICAID ==
[~2019-07-16] VITALS: Ht 175.3 cm; Wt 85.0 kg
[~2019-07-16 22:33] MED LIST changes: +LINE600T15 PO
[2019-07-16] MEDS ORDERED: ONDANSETRON 2MG/ML, 2ML IVPush ONE (23:00)
[2019-07-16] MEDS ORDERED: HYDROmorphone 1 MG/ML, 1ML INJ IVPush PRN (23:00)
[2019-07-16] MEDS ORDERED: KETOROLAC 30 MG/1 ML IVPush ONE (23:00)
[2019-07-16] MEDS ORDERED: KETOROLAC 30 MG/1 ML ONE (23:21)
[2019-07-16] MEDS ORDERED: HYDROmorphone 1 MG/ML, 1ML INJ ONE (23:22)
[2019-07-16] MEDS ORDERED: ONDANSETRON 2MG/ML, 2ML ONE (23:22)
[2019-07-16 23:29] LABS: BASOPHILS # (AUTO) 0.03 x10^3/uL (0-0.1); BASOPHILS % (AUTO) 0 % (0-1); EOSINOPHILS % (AUTO) 2 % (1-7); LYMPHOCYTES # (AUTO) 1.87 x10^3/uL (1-3.4); LYMPHOCYTES % (AUTO) 22 % (22-44); MD NO; MEAN CORPUSCULAR HGB CONC 33.3 g/dL (33.2-36.2); MEAN PLATELET VOLUME 8.4 fL (7.4-10.4); MONOCYTES # (AUTO) 0.59 x10^3/uL (0.2-0.8); MONOCYTES % (AUTO) 7 % (2-9); NEUTROPHILS # (AUTO) 6.02 x10^3/uL (1.8-6.8); NEUTROPHILS % (AUTO) 69 % (42-75); PLATELET COUNT 280 x10^3/uL (130-400); RED BLOOD COUNT 4.26 x10^6/uL (4.38-5.82); RED CELL DISTRIBUTION WIDTH 13.4 % (9.4-14.8)
[2019-07-16 23:38] LABS: ANION GAP 8 mmol/L (5-15); C-REACTIVE PROTEIN, QUANT 0.86 mg/dL (0.02-0.49); CALCIUM 8.9 mg/dL (8.5-10.1); CHLORIDE 106 mmol/L (98-107); CREATININE 1.19 mg/dL (0.7-1.3)
--- NOTE | 2019-07-16 23:40 | NUR ---
PT C/O BAKC PAIN/SPASM, ONSET TODAY. DENIES ANY TRAUMA. PIV ESTB. LABS DRAWN & SENT. TO MRI C SCREENING FORM COMPLETED.
[2019-07-16] MEDS ORDERED: GADOTERATE 10 MMOL/20 ML SYR ONE (23:52)
[2019-07-17 00:02] LABS: HCT (SEDRATE) 38.3 % (39.2-51.8)
--- NOTE | 2019-07-17 00:06 | NUR ---
REMAINS IN MRI
[2019-07-17 01:53] VITALS: BP 117/76
--- NOTE | 2019-07-17 02:08 | NUR ---
PT STATES FEELING MUCH BETTER. AWARE OF PLAN TO DC HOME. USING CELL PHONE TO CALL SON FOR RIDE HOME. VSS.
== END 2019-07-17 02:30 | disposition home or self-care (01) ==
LOC: ED 07-17 01:04
DX: M1A.9XX1 Chronic gout, unspecified, with tophus (tophi) (principal); M13.0 Polyarthritis, unspecified
CPT/HCPCS: 36415; 72156; 72157; 80048; 82040; 84550; 85025; 85651; 86140; 96374; 96375; 99285; A9575; J1170; J1885; J2405

== ENCOUNTER 2019-07-20 20:35 | Emergency (ER) | payer MEDICAID ==
[~2019-07-20] VITALS: Ht 175.3 cm; Wt 86.8 kg
[2019-07-20] MEDS ORDERED: SODIUM CHLORIDE FLUSH 10ML SYR IVF ONE (22:00)
[2019-07-20] MEDS ORDERED: ONDANSETRON 2MG/ML, 2ML IVPush ONE (22:00)
[2019-07-20] MEDS ORDERED: HYDROmorphone 1 MG/ML, 1ML INJ ONE ×2 (22:01→23:27)
[2019-07-20] MEDS ORDERED: ONDANSETRON 2MG/ML, 2ML ONE (22:01)
[2019-07-20] MEDS: HYDROmorphone 2 MG/ML, 1ML IVPush PRN ×2 (22:03→23:29)
--- NOTE | 2019-07-20 22:05 | NUR ---
PIV PLACED, LABS COLLECTED. MEDS ADMIN PER APR. PT PLACED ON OXYGEN FOR SAFETY.
[2019-07-20 22:22] LABS: HCT (SEDRATE) 40.4 % (39.2-51.8)
[2019-07-20 22:29] LABS: ALBUMIN 3.8 g/dL (3.4-5.0); ANION GAP 10 mmol/L (5-15); BASOPHILS # (AUTO) 0.03 x10^3/uL (0-0.1); BASOPHILS % (AUTO) 0 % (0-1); CALCIUM 8.6 mg/dL (8.5-10.1); CHLORIDE 101 mmol/L (98-107); EOSINOPHILS # (AUTO) 0.21 x10^3/uL (0-0.4); EOSINOPHILS % (AUTO) 3 % (1-7); LYMPHOCYTES # (AUTO) 2.02 x10^3/uL (1-3.4); LYMPHOCYTES % (AUTO) 30 % (22-44); MD NO; MEAN CORPUSCULAR HEMOGLOBIN 30.1 pg (27.5-34.5); MEAN CORPUSCULAR VOLUME 91.2 fL (81-97); MEAN PLATELET VOLUME 8.5 fL (7.4-10.4); MONOCYTES # (AUTO) 0.43 x10^3/uL (0.2-0.8); MONOCYTES % (AUTO) 6 % (2-9); NEUTROPHILS # (AUTO) 4.08 x10^3/uL (1.8-6.8); NEUTROPHILS % (AUTO) 60 % (42-75); PLATELET COUNT 332 x10^3/uL (130-400); RED BLOOD COUNT 4.46 x10^6/uL (4.38-5.82); RED CELL DISTRIBUTION WIDTH 13.5 % (9.4-14.8)
[2019-07-20 22:36] LABS: ALANINE AMINOTRANSFERASE 11 U/L (12-78); ALKALINE PHOSPHATASE 143 U/L (45-117); BILIRUBIN,TOTAL 0.6 mg/dL (0.2-1.0); CREATININE 1.15 mg/dL (0.7-1.3); TOTAL PROTEIN 7.7 g/dL (6.4-8.2)
--- NOTE | 2019-07-20 22:38 | NUR ---
PT STATES HIS PAIN IS BETTER. PT AWARE TO ASK FOR MORE PAIN MEDS NEEDED.
[2019-07-20] MEDS ORDERED: COLCHICINE 0.6 MG CAPSULE ONE (22:45)
--- NOTE | 2019-07-20 22:47 | NUR ---
MEDS ADMIN PER APR. PT RESTING COMFORTABLY ON GURNEY, TALKING ON PHONE.
--- NOTE | 2019-07-20 22:48 | NUR ---
REPORT GIVEN TO ERIN PACE.
--- NOTE | 2019-07-20 22:53 | NUR ---
REPORT FROM ANNY PACE. PT RESTING WITH NO NEEDS AT THIS TIME. WAITING FOR LAB RESULTS. CALL LIGHT IN REACH
[2019-07-20] MEDS ORDERED: COLCHICINE 0.6 MG CAPSULE PO ONE (23:00)
--- NOTE | 2019-07-20 23:30 | NUR ---
PT REMEDICATED FOR PAIN. VSS. PT HAS NO OTHER NEEDS AT THIS TIME. CALL LIGHT IN REACH
--- NOTE | 2019-07-21 00:38 | NUR ---
Patient given discharge instructions and they have confirmed that they understand the instructions. Patient ambulatory with steady gait.
[2019-07-21 00:39] VITALS: BP 119/81
== END 2019-07-21 00:41 | disposition home or self-care (01) ==
LOC: ED 21:47
DX: M54.2 Cervicalgia (principal); M1A.00X1 Idiopathic chronic gout, unspecified site, with tophus (tophi); E11.9 Type 2 diabetes mellitus without complications
CPT/HCPCS: 36415; 80053; 84550; 85025; 85651; 86140; 96374; 96375; 96376; 99285; J1170; J2405

== ENCOUNTER 2019-08-25 00:21 | Emergency (ER) | payer MEDICAID ==
[~2019-08-25] VITALS: Ht 175.3 cm; Wt 86.0 kg
[2019-08-25] MEDS ORDERED: KETOROLAC 30 MG/1 ML IM ONE (01:00)
[2019-08-25] MEDS ORDERED: KETOROLAC 30 MG/1 ML ONE ×2 (01:00→02:24)
[2019-08-25] MEDS ORDERED: HYDROmorphone 1 MG/ML, 1ML INJ IM PRN (01:00)
[2019-08-25] MEDS ORDERED: HYDROmorphone 1 MG/ML, 1ML INJ ONE ×2 (01:01→02:24)
[2019-08-25 01:40] LABS: BASOPHILS # (AUTO) 0.03 x10^3/uL (0-0.1); BASOPHILS % (AUTO) 1 % (0-1); EOSINOPHILS # (AUTO) 0.21 x10^3/uL (0-0.4); EOSINOPHILS % (AUTO) 3 % (1-7); LYMPHOCYTES # (AUTO) 1.96 x10^3/uL (1-3.4); LYMPHOCYTES % (AUTO) 32 % (22-44); MD NO; MEAN CORPUSCULAR HEMOGLOBIN 29.7 pg (27.5-34.5); MEAN PLATELET VOLUME 8.6 fL (7.4-10.4); MONOCYTES # (AUTO) 0.46 x10^3/uL (0.2-0.8); MONOCYTES % (AUTO) 8 % (2-9); NEUTROPHILS # (AUTO) 3.46 x10^3/uL (1.8-6.8); NEUTROPHILS % (AUTO) 57 % (42-75); PLATELET COUNT 286 x10^3/uL (130-400); RED BLOOD COUNT 4.24 x10^6/uL (4.38-5.82); RED CELL DISTRIBUTION WIDTH 13.9 % (9.4-14.8)
[2019-08-25 01:43] LABS: ALANINE AMINOTRANSFERASE 18 U/L (12-78); ALBUMIN 3.7 g/dL (3.4-5.0); ANION GAP 7 mmol/L (5-15); CALCIUM 8.3 mg/dL (8.5-10.1); CHLORIDE 108 mmol/L (98-107); CREATININE 1.58 mg/dL (0.7-1.3)
[2019-08-25 01:45] LABS: ALKALINE PHOSPHATASE 147 U/L (45-117); BILIRUBIN,TOTAL 0.2 mg/dL (0.2-1.0); TOTAL PROTEIN 7.1 g/dL (6.4-8.2)
[2019-08-25] MEDS ORDERED: KETOROLAC 30 MG/1 ML IVPush ONE (02:30)
[2019-08-25] MEDS ORDERED: HYDROmorphone 2 MG/ML, 1ML IVPush PRN (02:30)
[2019-08-25] MEDS ORDERED: SODIUM CHLORIDE FLUSH 10ML SYR IVF ONE (02:30)
--- NOTE | 2019-08-25 02:57 | NUR ---
Pt reports that he is feeling better at this time.
--- NOTE | 2019-08-25 03:44 | NUR ---
pt is attemtping to call for ride. Will wait in room until ride available. Very pleasant gentleman.
--- NOTE | 2019-08-25 04:52 | NUR ---
PT CONTINUES TO TRY TO REACH FAMILY, DECLINES OFFER OF CAB VOUCHER.
[2019-08-25 05:32] VITALS: BP 107/62
== END 2019-08-25 05:34 | disposition home or self-care (01) ==
LOC: ED 01:26
DX: M19.042 Primary osteoarthritis, left hand (principal); M19.041 Primary osteoarthritis, right hand; M17.0 Bilateral primary osteoarthritis of knee; M10.9 Gout, unspecified; E11.9 Type 2 diabetes mellitus without complications
CPT/HCPCS: 36415; 80053; 85025; 96372; 96374; 96375; 99285; J1170; J1885; J7512

== ENCOUNTER 2019-09-02 23:38 | Emergency (ER) | payer MEDICAID ==
[~2019-09-02] VITALS: Ht 175.3 cm; Wt 85.0 kg
--- NOTE | 2019-09-03 00:04 | NUR ---
THIS PT CAME FROM HOME AFTER "RUNNING INTO THE WALL THIS AFTERNOON BECAUSE I TURNED AROUND FAST AND HIT MY SHOULDER." PT HAS SEVERE GOUT NOTED ON EXTREMETIES. PT COMPLAINING OF RIGHT NECK, AND POSTERIOR SHOULDER PAIN. PT HAS LIMITED NECK MOVEMENT, STATES IT IS BASELINE. CONFIRMED WITH PT THAT HE IS COMFORTABLE SPEAKING WELSH AND DAUGHTER IS AT BEDSIDE TO TRANSLATE.
[2019-09-03] MEDS ORDERED: METHOCARBAMOL 500 MG TABLET ONE (00:20)
--- NOTE | 2019-09-03 00:24 | NUR ---
PT TO IMAGING.
[2019-09-03] MEDS ORDERED: METHOCARBAMOL 750 MG TABLET PO ONE (00:30)
[2019-09-03] MEDS ORDERED: KETOROLAC 30 MG/1 ML ONE (00:57)
[2019-09-03] MEDS ORDERED: KETOROLAC 30 MG/1 ML IM ONE (01:00)
--- NOTE | 2019-09-03 01:30 | NUR ---
PT SITTING IN BED, RESPIRATIONS EVEN AND UNLABORED, NO SIGNS OF ACUTE DISTRESS. CALL LIGHT IN REACH. DAUGHTER AT BEDSIDE.
[2019-09-03 02:05] VITALS: BP 125/74
--- NOTE | 2019-09-03 02:05 | NUR ---
PT D/C WITH D/C SUMMARY AND SCRIPTS. ALL QUESTIONS ANSWERED. PT AMBULATES TO REGISTRATION DESK WITH STEADY GAIT FOR D/C HOME. PT DENIES ANY OTHER NEEDS PERTAINING TO THIS VISIT.
== END 2019-09-03 02:07 | disposition home or self-care (01) ==
LOC: ED 23:45
DX: G89.11 Acute pain due to trauma (principal); M13.111 Monoarthritis, not elsewhere classified, right shoulder; M54.6 Pain in thoracic spine; M25.511 Pain in right shoulder; W22.8XXA Striking against or struck by other objects, initial encounter; Y93.89 Activity, other specified; Y92.89 Other specified places as the place of occurrence of the external cause; Y99.8 Other external cause status
CPT/HCPCS: 72072; 73030; 96372; 99285; J1885

== ENCOUNTER 2019-09-28 19:09 | Emergency (ER) | payer MEDICAID ==
[~2019-09-28] VITALS: Ht 175.3 cm; Wt 80.0 kg
--- NOTE | 2019-09-28 20:29 | NUR ---
ASSUMED CARE OF PATIENT. PATIENT REPORTS HE HAD A GLF TODAY AND IS HAVING LEFT HIP AND KNEE PAIN. PT HAS A HISTORY OF ARTHRITIS. VS STABLE. CALL LIGHT IN PLACE. WILL CONTINUE TO MONITOR.
--- NOTE | 2019-09-28 20:36 | NUR ---
ALETA CHWE IN ROOM
[2019-09-28] MEDS ORDERED: OXYcodone/APAP 10/325MG TABLET PO ONE (21:00)
[2019-09-28] MEDS ORDERED: OXYcodone/APAP 10/325MG TABLET ONE (21:06)
[2019-09-28 22:39] VITALS: BP 120/83
--- NOTE | 2019-09-28 22:48 | NUR ---
PT HAS A RIDE HOME WITH FAMILY. PT READY FOR DC.
== END 2019-09-28 22:54 | disposition home or self-care (01) ==
LOC: ED 19:39
DX: S70.02XA Contusion of left hip, initial encounter (principal); G89.29 Other chronic pain; M25.562 Pain in left knee; M25.462 Effusion, left knee; E11.9 Type 2 diabetes mellitus without complications; M10.9 Gout, unspecified; W01.0XXA Fall on same level from slipping, tripping and stumbling without subsequent striking against object, initial encounter; Y93.89 Activity, other specified; Y92.098 Other place in other non-institutional residence as the place of occurrence of the external cause; Y99.8 Other external cause status
CPT/HCPCS: 99284

== ENCOUNTER 2019-10-26 12:53 | Emergency (ER) | payer MEDICAID ==
[~2019-10-26] VITALS: Ht 175.3 cm; Wt 89.0 kg
--- NOTE | 2019-10-26 14:09 | NUR ---
ASSUMED CARE OF PATIENT. PATIENT REPORTS LEFT KNEE PAIN/SWELLING. BLANKET GIVEN. VS STABLE. PULSE OX ON. NO ACUTE DISTRESS NOTED. WILL CONTINUE TO MONITOR.
[2019-10-26 14:54] LABS: BASOPHILS # (AUTO) 0.03 x10^3/uL (0-0.1); BASOPHILS % (AUTO) 1 % (0-1); EOSINOPHILS # (AUTO) 0.17 x10^3/uL (0-0.4); EOSINOPHILS % (AUTO) 3 % (1-7); LYMPHOCYTES # (AUTO) 1.63 x10^3/uL (1-3.4); LYMPHOCYTES % (AUTO) 30 % (22-44); MD NO; MEAN CORPUSCULAR HEMOGLOBIN 29.6 pg (27.5-34.5); MEAN CORPUSCULAR HGB CONC 32.4 g/dL (33.2-36.2); MEAN CORPUSCULAR VOLUME 91.4 fL (81-97); MEAN PLATELET VOLUME 8.3 fL (7.4-10.4); MONOCYTES # (AUTO) 0.48 x10^3/uL (0.2-0.8); MONOCYTES % (AUTO) 9 % (2-9); NEUTROPHILS # (AUTO) 3.14 x10^3/uL (1.8-6.8); NEUTROPHILS % (AUTO) 58 % (42-75); PLATELET COUNT 263 x10^3/uL (130-400); RED BLOOD COUNT 4.58 x10^6/uL (4.38-5.82); RED CELL DISTRIBUTION WIDTH 14.9 % (9.4-14.8)
[2019-10-26 14:58] LABS: ANION GAP 7 mmol/L (5-15); C-REACTIVE PROTEIN, QUANT 0.25 mg/dL (0.02-0.49); CALCIUM 8.8 mg/dL (8.5-10.1); CHLORIDE 108 mmol/L (98-107); CREATININE 1.15 mg/dL (0.7-1.3)
[2019-10-26 15:32] LABS: HCT (SEDRATE) 41.9 % (39.2-51.8)
--- NOTE | 2019-10-26 15:48 | NUR ---
DR BARLOW HAS SEEN PATIENT.
[2019-10-26] MEDS ORDERED: KETOROLAC 60 MG/2 ML ONE (15:53)
[2019-10-26] MEDS ORDERED: HYDROmorphone 1 MG/ML, 1ML INJ ONE (15:54)
[2019-10-26] MEDS ORDERED: KETOROLAC 30 MG/1 ML IM ONE (16:00)
[2019-10-26] MEDS ORDERED: HYDROmorphone 1 MG/ML, 1ML INJ IM ONE (16:00)
--- NOTE | 2019-10-26 17:15 | NUR ---
PT GIVEN CRUTCHES PER MD. CRUTCH DEMO TAUGHT. PT READY FOR DC
[2019-10-26 17:34] VITALS: BP 132/85
[2019-10-26] MEDS ORDERED: INDO50CA15 PO (17:35)
== END 2019-10-26 17:46 | disposition home or self-care (01) ==
LOC: ED 15:08
DX: M1A.0620 Idiopathic chronic gout, left knee, without tophus (tophi) (principal)
CPT/HCPCS: 36415; 73560; 80048; 85025; 85651; 86140; 96372; 99285; J1170; J1885

== ENCOUNTER 2020-01-03 04:47 | Emergency (ER) | payer MEDICAID ==
[~2020-01-03] VITALS: Ht 172.7 cm; Wt 84.9 kg
--- NOTE | 2020-01-03 05:05 | NUR ---
Patient comes in with complaints of increase pain for left shoulder. Patient has a history of arthritis and believes that is what is wrong. Denies injury. States he only takes predisones only for the pain.
[2020-01-03] MEDS ORDERED: KETOROLAC 60 MG/2 ML ONE (05:21)
[2020-01-03] MEDS ORDERED: OXYcodone/APAP 10/325MG TABLET ONE (05:22)
[2020-01-03] MEDS ORDERED: KETOROLAC 30 MG/1 ML IM ONE (05:30)
[2020-01-03] MEDS ORDERED: OXYcodone/APAP 10/325MG TABLET PO ONE (05:30)
[2020-01-03 06:04] VITALS: BP 133/91
== END 2020-01-03 06:06 | disposition home or self-care (01) ==
LOC: ED 05:30
DX: M10.9 Gout, unspecified (principal); M13.112 Monoarthritis, not elsewhere classified, left shoulder
CPT/HCPCS: 99283

== ENCOUNTER 2020-01-30 19:35 | Emergency (ER) | payer MEDICAID ==
[~2020-01-30] VITALS: Ht 175.3 cm; Wt 85.0 kg
--- NOTE | 2020-01-30 19:56 | NUR ---
FIRST CONTACT W PT. PT REQUIRING TWO PERSON ASSIST FROM WHEELCHAIR TO GURNEY SECONDARY TO L KNEE/ANKLE PAIN. PT WITH SIGNIFICANT JOING SWELLING NARESH HANDS AND LLE ANKLE/KNEE. PT REPORTS HX OF GOUT WITH [employer]IL[employer] F[employer].
[2020-01-30] MEDS ORDERED: KETOROLAC 60 MG/2 ML ONE (20:17)
[2020-01-30] MEDS ORDERED: OXYcodone/APAP 5/325MG TABLET ONE (20:18)
[2020-01-30] MEDS ORDERED: COLCHICINE 0.6 MG CAPSULE ONE ×2 (20:25→20:55)
[2020-01-30] MEDS ORDERED: COLCHICINE 0.6 MG CAPSULE PO ONE ×2 (20:30→21:30)
[2020-01-30] MEDS ORDERED: KETOROLAC 30 MG/1 ML IM ONE (20:30)
[2020-01-30] MEDS ORDERED: OXYcodone/APAP 5/325MG TABLET PO ONE (20:30)
--- NOTE | 2020-01-30 20:34 | NUR ---
PT MEDICATED PER EMAR FOR PAIN
[2020-01-30 21:42] VITALS: BP 138/78
== END 2020-01-30 21:44 | disposition home or self-care (01) ==
LOC: ED 20:59
DX: M10.032 Idiopathic gout, left wrist (principal); M10.031 Idiopathic gout, right wrist; M10.072 Idiopathic gout, left ankle and foot; M10.071 Idiopathic gout, right ankle and foot; M10.061 Idiopathic gout, right knee; M10.062 Idiopathic gout, left knee
CPT/HCPCS: 96372; 99284; J1885

== ENCOUNTER 2020-03-23 20:06 | Emergency (ER) | payer MEDICAID ==
[~2020-03-23] VITALS: Ht 175.3 cm; Wt 80.0 kg
[~2020-03-23 20:06] MED LIST changes: -CYCL-259 PO; +CYCL10TA2 PO; -OXYC-302 PO; +OXYC1TAB14 PO; -OXYC5TAB3 PO; +OXYC5TAB98 PO
--- NOTE | 2020-03-23 20:24 | NUR ---
PT BIB SON VIA POV. PER PT HE HAS PAIN TO RIGHT LEG AND HIP. PT DENIES INJURY. PT HAS HX OF GOUT WITH SWELLING TO JOINTS. PT RESTING ON SIDE OF MARC MANCINI AT THIS TIME, ERNIE.
[2020-03-23] MEDS ORDERED: MORPHINE SULFATE 4 MG/ML, 1ML ONE ×2 (20:46→22:10)
[2020-03-23] MEDS ORDERED: KETOROLAC 30 MG/1 ML ONE (20:46)
[2020-03-23] MEDS ORDERED: ONDANSETRON 2MG/ML, 2ML ONE (20:46)
[2020-03-23] MEDS: MORPHINE SULFATE 4 MG/ML, 1ML IVPush PRN ×2 (20:52→22:14)
[2020-03-23 20:58] LABS: BASOPHILS % (AUTO) 0 % (0-1); EOSINOPHILS % (AUTO) 1 % (1-7); LYMPHOCYTES % (AUTO) 23 % (22-44); MEAN CORPUSCULAR HGB CONC 33.2 g/dL (33.2-36.2); MEAN PLATELET VOLUME 8.1 fL (7.4-10.4); MONOCYTES % (AUTO) 7 % (2-9); NEUTROPHILS % (AUTO) 69 % (42-75); PLATELET COUNT 302 x10^3/uL (130-400); RED BLOOD COUNT 4.59 x10^6/uL (4.38-5.82); RED CELL DISTRIBUTION WIDTH 14.2 % (9.4-14.8)
[2020-03-23 20:59] LABS: MD NO
[2020-03-23] MEDS ORDERED: ONDANSETRON 2MG/ML, 2ML IVPush ONE (21:00)
[2020-03-23] MEDS ORDERED: SODIUM CHLORIDE FLUSH 10ML SYR IVF ONE (21:00)
[2020-03-23] MEDS ORDERED: KETOROLAC 30 MG/1 ML IVPush ONE (21:00)
[2020-03-23 21:07] LABS: ANION GAP 10 mmol/L (5-15); CALCIUM 8.9 mg/dL (8.5-10.1); CHLORIDE 109 mmol/L (98-107); CREATININE 1.28 mg/dL (0.7-1.3)
--- NOTE | 2020-03-23 21:35 | NUR ---
PT PROVIDED URINAL AND WARM BLANKETS.
[2020-03-23] MEDS ORDERED: COLCHICINE 0.6 MG CAPSULE ONE (21:44)
[2020-03-23] MEDS ORDERED: COLCHICINE 0.6 MG CAPSULE PO ONE (22:00)
[2020-03-23] MEDS ORDERED: DEXAMETHASONE 4 MG TABLET PO ONE (22:00)
[2020-03-23] MEDS ORDERED: DEXAMETHASONE 4 MG TABLET ONE (22:00)
--- NOTE | 2020-03-23 22:50 | NUR ---
discharge instructions reviewed with patient. no further questions at this time. prescriptions handed directly to patient. patient having son come to pick him up. requesting wheelchair to lobby. pain is managed at this time per patient report. VS remain stable on RA. able to dress himself. all personal belongings with patient on time of dc. IV removed per protocol.
[2020-03-23 23:03] VITALS: BP 144/88
== END 2020-03-23 23:13 | disposition home or self-care (01) ==
LOC: ED 22:12
DX: M1A.0510 Idiopathic chronic gout, right hip, without tophus (tophi) (principal); M1A.0620 Idiopathic chronic gout, left knee, without tophus (tophi); M1A.0610 Idiopathic chronic gout, right knee, without tophus (tophi); M1A.0410 Idiopathic chronic gout, right hand, without tophus (tophi); M19.041 Primary osteoarthritis, right hand; E11.9 Type 2 diabetes mellitus without complications; M19.90 Unspecified osteoarthritis, unspecified site
CPT/HCPCS: 36415; 73502; 80048; 85025; 96374; 96375; 96376; 99284; J1885; J2270; J2405

== ENCOUNTER 2020-05-08 13:40 | Emergency (ER) | payer MEDICAID ==
[~2020-05-08] VITALS: Ht 175.3 cm; Wt 83.1 kg
--- NOTE | 2020-05-08 14:21 | NUR ---
GRAIN COMBINER: PT TO ROOM FROM LOBBY VIA W/C
[2020-05-08] MEDS ORDERED: ONDANSETRON 2MG/ML, 2ML IVPush ONE (16:00)
[2020-05-08] MEDS ORDERED: SODIUM CHLORIDE 0.9% 1,000ML IVBOLUS ONE (16:00)
[2020-05-08] MEDS ORDERED: MORPHINE SULFATE 4 MG/ML, 1ML ONE ×2 (16:11→17:48)
[2020-05-08] MEDS ORDERED: ONDANSETRON 2MG/ML, 2ML ONE (16:11)
[2020-05-08 16:19] LABS: BASOPHILS % (AUTO) 1 % (0-1); EOSINOPHILS % (AUTO) 2 % (1-7); LYMPHOCYTES % (AUTO) 27 % (22-44); MEAN CORPUSCULAR HGB CONC 33.2 g/dL (33.2-36.2); MEAN PLATELET VOLUME 8.5 fL (7.4-10.4); MONOCYTES % (AUTO) 8 % (2-9); NEUTROPHILS % (AUTO) 62 % (42-75); PLATELET COUNT 303 x10^3/uL (130-400); RED BLOOD COUNT 4.74 x10^6/uL (4.38-5.82); RED CELL DISTRIBUTION WIDTH 14.2 % (9.4-14.8)
[2020-05-08 16:21] LABS: MD NO
[2020-05-08] MEDS: MORPHINE SULFATE 4 MG/ML, 1ML IVPush PRN ×2 (16:25→17:55)
[2020-05-08 16:30] LABS: ANION GAP 5 mmol/L (5-15); CALCIUM 8.6 mg/dL (8.5-10.1); CHLORIDE 110 mmol/L (98-107)
[2020-05-08 16:33] LABS: ALANINE AMINOTRANSFERASE 14 U/L (12-78); ALKALINE PHOSPHATASE 133 U/L (45-117); BILIRUBIN,TOTAL 0.3 mg/dL (0.2-1.0); CREATININE 1.12 mg/dL (0.7-1.3); TOTAL PROTEIN 7.5 g/dL (6.4-8.2)
[2020-05-08 16:44] LABS: MICROSCOPIC INDICATED
--- NOTE | 2020-05-08 17:28 | NUR ---
PT RESTING IN BED, PT ON MONITOR WITH PT VSS. PT DENIED ANY CURRENT WANTS OR NEEDS.
[2020-05-08] MEDS ORDERED: KETOROLAC 30 MG/1 ML ONE (17:48)
[2020-05-08] MEDS ORDERED: KETOROLAC 30 MG/1 ML IVPush ONE (18:00)
[2020-05-08 18:49] VITALS: BP 136/78
== END 2020-05-08 18:53 | disposition home or self-care (01) ==
LOC: ED 18:10
DX: N20.0 Calculus of kidney (principal); R31.29 Other microscopic hematuria; M10.9 Gout, unspecified; M54.5 Low back pain; R10.9 Unspecified abdominal pain
CPT/HCPCS: 36415; 74176; 80053; 81001; 85025; 87086; 96361; 96374; 96375; 96376; 99285; J1885; J2270; J2405; J7030

== ENCOUNTER 2020-06-15 01:40 | Emergency (ER) | payer MEDICAID ==
[~2020-06-15] VITALS: Ht 175.3 cm; Wt 83.0 kg
--- NOTE | 2020-06-15 02:43 | NUR ---
willow machine operator: pt moved from lobby to room 18
--- NOTE | 2020-06-15 02:58 | NUR ---
PT WHEELED TO ROOM 18. PT WITH DIFFICULTY GETTING INTO STRETCHER. STATES HIS HIPS HURT BILATERALLY. HUNCHED OVER AND GOT INTO STRETCHER, AND ON CR MONITOR.
--- NOTE | 2020-06-15 03:34 | NUR ---
PT PROVIDED WARM BLANKETS AND COMFORTABLY, AWAITING EVAL.
[2020-06-15 03:53] VITALS: BP 128/66
[2020-06-15] MEDS ORDERED: KETOROLAC 30 MG/1 ML IM ONE (04:00)
[2020-06-15] MEDS ORDERED: KETOROLAC 30 MG/1 ML ONE (04:11)
[2020-06-15 04:26] LABS: BASOPHILS % (AUTO) 1 % (0-1); EOSINOPHILS % (AUTO) 4 % (1-7); LYMPHOCYTES % (AUTO) 34 % (22-44); MEAN CORPUSCULAR HEMOGLOBIN 30.6 pg (27.5-34.5); MEAN CORPUSCULAR HGB CONC 33.5 g/dL (33.2-36.2); MEAN PLATELET VOLUME 8.4 fL (7.4-10.4); MONOCYTES % (AUTO) 11 % (2-9); NEUTROPHILS % (AUTO) 50 % (42-75); PLATELET COUNT 245 x10^3/uL (130-400); RED BLOOD COUNT 4.28 x10^6/uL (4.38-5.82); RED CELL DISTRIBUTION WIDTH 14.3 % (9.4-14.8)
[2020-06-15 04:29] LABS: MD NO
[2020-06-15 04:35] LABS: ALBUMIN 3.8 g/dL (3.4-5.0); ANION GAP 7 mmol/L (5-15); CALCIUM 8.3 mg/dL (8.5-10.1); CHLORIDE 106 mmol/L (98-107)
[2020-06-15 04:38] LABS: ALANINE AMINOTRANSFERASE 21 U/L (12-78); ALKALINE PHOSPHATASE 129 U/L (45-117); BILIRUBIN,TOTAL 0.2 mg/dL (0.2-1.0); CREATININE 1.33 mg/dL (0.7-1.3); TOTAL PROTEIN 6.8 g/dL (6.4-8.2)
[2020-06-15 04:46] LABS: MICROSCOPIC AUTO
--- NOTE | 2020-06-15 05:01 | NUR ---
XRAYS COMPLETED AND PT BACK TO HIS ROOM. RESTING COMFORTABLY AND MINIMAL COMPLAINT OF DISCOMFORT AFTER PAIN MEDS.
--- NOTE | 2020-06-15 05:54 | NUR ---
F/U AND D/C INSTRUCTIONS GIVEN TO PT AND HE V/U. PT WHEELCHAIRED OUT, AND PT CALLING FAMILY TO FINE ARTS INSTRUCTOR.
--- NOTE | 2020-06-15 05:54 | NUR ---
MD TO SPEAK WITH PT, AND PT TO BE DC.
== END 2020-06-15 05:55 | disposition home or self-care (01) ==
LOC: ED 02:35
DX: R10.84 Generalized abdominal pain (principal); M54.5 Low back pain
CPT/HCPCS: 36415; 76770; 80053; 81001; 85025; 96372; 99284; J1885

== ENCOUNTER 2020-08-08 09:06 | Emergency (ER) | payer MEDICAID ==
[~2020-08-08] VITALS: Ht 175.3 cm; Wt 82.9 kg
[2020-08-08] MEDS ORDERED: OXYcodone/APAP 10/325MG TABLET ONE (09:22)
[2020-08-08] MEDS ORDERED: KETOROLAC 60 MG/2 ML ONE (09:22)
[2020-08-08] MEDS ORDERED: COLCHICINE 0.6 MG CAPSULE ONE (09:23)
[2020-08-08] MEDS ORDERED: KETOROLAC 30 MG/1 ML IM ONE (09:30)
[2020-08-08] MEDS ORDERED: COLCHICINE 0.6 MG CAPSULE PO ONE (09:30)
[2020-08-08] MEDS ORDERED: OXYcodone/APAP 10/325MG TABLET PO ONE (09:30)
--- NOTE | 2020-08-08 09:30 | NUR ---
PT C/O PAIN IN HANDS AND FEE. OT HX OF GOUT AND ARTHRITIS, DX OVER 10 YEARS AGO. PAIN 11/23. OBVIOUS DEFORMITY TO BOTH HANDS FROM ARTHRITIS.
[2020-08-08 09:47] VITALS: BP 128/85
--- NOTE | 2020-08-08 09:48 | NUR ---
PT REC'VD DISCHARGE INSTRUCTIONS AND EDUCATION. PT HAD NO FURTHER QUESTIONS.
--- NOTE | 2020-08-08 09:50 | NUR ---
PT AMBULATED TO RI AREA, STEADY GAIT.
== END 2020-08-08 10:14 | disposition home or self-care (01) ==
LOC: ED 09:20
DX: M13.842 Other specified arthritis, left hand (principal); M13.841 Other specified arthritis, right hand; E11.9 Type 2 diabetes mellitus without complications; M19.90 Unspecified osteoarthritis, unspecified site
CPT/HCPCS: 96372; 99283; J1885

== ENCOUNTER 2020-08-24 23:48 | Emergency (ER) | payer MEDICAID ==
[~2020-08-24] VITALS: Ht 175.3 cm; Wt 84.0 kg
[2020-08-24 23:51] VITALS: BP 124/79
[2020-08-24] MEDS ORDERED: FLUORESCEIN OPHTHALMIC 1 MG STRIP ONE (23:57)
[2020-08-24] MEDS ORDERED: PROPARACAINE OPHTH 0.5%, 15ML ONE (23:57)
[2020-08-25] MEDS ORDERED: PROPARACAINE OPHTH 0.5%, 15ML EACHEYE ONE
[2020-08-25] MEDS ORDERED: FLUORESCEIN OPHTHALMIC 1 MG STRIP EACHEYE ONE
--- NOTE | 2020-08-25 00:26 | NUR ---
PT CAME IN CO RIGHT EYE IRRITATION AND REDNESS AFTER GETTING SOME BREAK FLUID IN IT. GEMMA LENSES APPLIED AND FLUSHING EYE. PT TOLERATING WELL
== END 2020-08-25 01:05 | disposition home or self-care (01) ==
LOC: ED 08-25 00:10
DX: H10.211 Acute toxic conjunctivitis, right eye (principal); E11.9 Type 2 diabetes mellitus without complications
CPT/HCPCS: 99284

== ENCOUNTER 2020-09-02 06:10 | Emergency (ER) | payer MEDICAID ==
[~2020-09-02] VITALS: Ht 175.3 cm; Wt 82.2 kg
--- NOTE | 2020-09-02 06:28 | NUR ---
PT C/O OF LEFT SHOULDER PAIN SINCE 299 THIS AM. PT HX OF RHEUMATOID ARTHRITIS. PT HAS DIFFICULTY RAISING LEFT ARM OVER HEAD. CMS INTACT DISTAL TO INJURY. ATTACHED TO MONITORS, VSS. TRAN. PT ON CELL PHONE BED IN LOW POSITION, RAILS ENGAGED. CALL LIGHT ON LAP. Addendum: 09/02/20 at 0631 by [email or web address] PT DENIES INJURY OR FALL TO LEFT ARM
--- NOTE | 2020-09-02 06:44 | NUR ---
REPORT FROM SANJEEV JOSEPH
--- NOTE | 2020-09-02 06:44 | NUR ---
PT TO XRAY
[2020-09-02] MEDS ORDERED: HYDROmorphone 1 MG/ML, 1ML INJ ONE (06:52)
[2020-09-02] MEDS ORDERED: COLCHICINE 0.6 MG CAPSULE ONE (06:52)
[2020-09-02] MEDS ORDERED: HYDROmorphone 1 MG/ML, 1ML INJ IM ONE (07:00)
[2020-09-02] MEDS ORDERED: COLCHICINE 0.6 MG CAPSULE PO ONE (07:00)
--- NOTE | 2020-09-02 07:01 | NUR ---
GAVE REPORT TO SONU PACE. TRANSFER OF CARE.
[2020-09-02 07:17] LABS: BASOPHILS % (AUTO) 0 % (0-1); EOSINOPHILS % (AUTO) 1 % (1-7); LYMPHOCYTES % (AUTO) 14 % (22-44); MEAN CORPUSCULAR HEMOGLOBIN 30.7 pg (27.5-34.5); MEAN CORPUSCULAR HGB CONC 33.5 g/dL (33.2-36.2); MEAN PLATELET VOLUME 8.1 fL (7.4-10.4); MONOCYTES % (AUTO) 8 % (2-9); NEUTROPHILS % (AUTO) 77 % (42-75); PLATELET COUNT 265 x10^3/uL (130-400); RED BLOOD COUNT 4.48 x10^6/uL (4.38-5.82); RED CELL DISTRIBUTION WIDTH 13.8 % (9.4-14.8)
[2020-09-02 07:27] LABS: ANION GAP 6 mmol/L (5-15); CALCIUM 8.6 mg/dL (8.5-10.1); CHLORIDE 103 mmol/L (98-107); CREATININE 0.94 mg/dL (0.7-1.3)
--- NOTE | 2020-09-02 08:00 | NUR ---
PT RESTING ON GURNEY, NADN/VSS. STATES PAIN HAS DECREASED. CALL LIGHT WITHIN REACH.
[2020-09-02 08:55] VITALS: BP 107/64
--- NOTE | 2020-09-02 09:03 | NUR ---
Patient given discharge instructions and they have confirmed that they understand the instructions. Patient ambulatory with steady gait.
== END 2020-09-02 09:04 | disposition home or self-care (01) ==
LOC: ED 06:28
DX: M1A.0120 Idiopathic chronic gout, left shoulder, without tophus (tophi) (principal); M1A.0320 Idiopathic chronic gout, left wrist, without tophus (tophi); M25.512 Pain in left shoulder; M25.532 Pain in left wrist; E11.9 Type 2 diabetes mellitus without complications; M19.90 Unspecified osteoarthritis, unspecified site
CPT/HCPCS: 36415; 73030; 73110; 80048; 85025; 96372; 99284; J1170